=== PATIENT | male | born 1940 | race Caucasian/White ===

== ENCOUNTER 2017-06-20 07:51 | Inpatient (IN) | payer OTHER, MEDICARE ==
[2017-05-26 11:04] VITALS: Ht 180.3 cm; Wt 135.0 kg
--- NOTE | 2017-05-26 11:43 | PAT Medication Instructions ---
Service Date May 26, 2017. Current Home Medication List Aspirin (Aspirin Ec), 81 MG PO QAM B-Complex Vitamins (Vitamin B Complex), 1 TAB PO QAM Coenzyme Q10 (Ubidecarenone) (Coq-10), 400 MG PO QAM Fish Oil ([place]-3), 2 CAP PO QAM Levothyroxine Sodium (Levothyroxine Sodium), 1 TAB PO QAM Metformin Hcl (Glucophage), 500 MG PO BID Multivitamins/Minerals (Mvi With Minerals), 1 TAB PO QAM Naproxen (Aleve), 40 MG PO QAM PRN for RN Ramipril (Ramipril), 1 CAP PO QAM Tamsulosin Hcl (Flomax), 0.8 MG PO QPM Vitamin E (Alph-E), 400 UNITS PO QAM Medication Instructions For Your Scheduled Surgery - Check with surgeon for instructions: Naproxen (Aleve), 40 MG PO QAM PRN for RN - Hold the following medications 2 weeks prior to surgery: Vitamin E (Alph-E), 400 UNITS PO QAM Coenzyme Q10 (Ubidecarenone) (Coq-10), 400 MG PO QAM Fish Oil ([place]-3), 2 CAP PO QAM - Hold the following medications the morning of surgery: B-Complex Vitamins (Vitamin B Complex), 1 TAB PO QAM Metformin Hcl (Glucophage), 500 MG PO BID Multivitamins/Minerals (Mvi With Minerals), 1 TAB PO QAM Ramipril (Ramipril), 1 CAP PO QAM - Take the following medications the morning of surgery with a sip of water: Levothyroxine Sodium (Levothyroxine Sodium), 1 TAB PO QAM Aspirin (Aspirin Ec), 81 MG PO QAM - Take the following medications as scheduled the night before surgery: Tamsulosin Hcl (Flomax), 0.8 MG PO QPM Metformin Hcl (Glucophage), 500 MG PO BID If you have any questions please call us at [phone] or [phone] or [phone]
--- NOTE | 2017-05-26 12:32 | DIAGNOSTIC IMAGING REPORT ---
CHEST 2 VIEWS ROUTINE HISTORY: Preop. COMPARISON: None. FINDINGS: The lungs are clear. Cardiac silhouette is normal in size. No pleural effusions. No pneumothorax. IMPRESSION: No acute process. Electronically signed by: Al Hung M.D. 05/26/2017 12:31 PM Dictated Date/Time: 05/26/2017 12:29 PM
[2017-05-26 12:39] LABS: EOS % 1.5 %; EOS ABS # 0.07 K/uL (0-0.5); HEMATOCRIT 43.8 % (42-52); HEMOGLOBIN 14.7 g/dL (14.0-18.0); IG# 0.01 K/uL (0.00-0.02); LYMPH % 23.5 %; LYMPH ABS # 1.09 K/uL (1.2-3.4); MEAN CELL VOLUME 88.1 fL (80-100); MEAN CORPUSCULAR HEMOGLOBIN 29.6 pg (25-34); MEAN CORPUSCULAR HGB CONC 33.6 g/dl (32-36); MONO % 6.3 %; MONO ABS # 0.29 K/uL (0.11-0.59); NEUT % 68.5 %; NEUT ABS # 3.17 K/uL (1.4-6.5); PLATELET COUNT 102 K/uL (130-400); RED CELL DISTRIBUTION WIDTH CV 13.7 % (11.5-14.5); RED CELL DISTRIBUTION WIDTH SD 44.3 fL (36.4-46.3); WHITE BLOOD COUNT 4.63 K/uL (4.8-10.8)
[2017-05-26 12:51] LABS: PTT PATIENT 28.9 SECONDS (21.0-31.0)
[2017-05-26 13:11] LABS: CREATININE 0.92 mg/dl (0.60-1.40); HEMOGLOBIN A1C 5.7 % (4.5-5.6); POTASSIUM 4.2 mmol/L (3.5-5.1)
[2017-06-20] VITALS (9 sets, daily range): BP systolic 135–179; BP diastolic 77–90; PULSE 58–71; TEMP 36.3–36.7; O2SAT 94–99
[~2017-06-20] VITALS: Ht 180.3 cm; Wt 135.0 kg
--- NOTE | 2017-06-20 07:08 | History & Physical Bridge Note ---
H&P Re-Evaluation Bridge Note: I have examined the patient, reviewed the History & Physical and in the interval since the performance of the History & Physical I have noted the following changes of clinical significance: No changes noted
--- NOTE | 2017-06-20 07:13 | History and Physical ---
History & Physical Date Jun 20, 2017. Chief Complaint Patient presents a 77-year-old white male being seen by with claims of severe end-stage DJD about his right knee for right total knee arthroplasties failed attempts at conservative management and physical therapy anti-inflammatories relative rest activity modification injections or bracing presents for total knee arthroplasty History of Present Illness The patient is a 77 year old male with complaints of ongoing pain about his right knee with severe end-stage DJD bodies right knee he failed times conservative management physical therapy anti-inflammatories relative rest activity modification corticosteroid injections presents for right total knee arthroplasty Additional History Hepatic Disease: No Endocrine Disorder: Yes Kidney Disease: No Hypertension: Yes Heart Disease: No Bleeding Tendencies: No Infectious Diseases: No Allergies Coded Allergies: Morphine (Verified Allergy, Unknown, ITCHY NAUSEA AND VOMITING, 05/26/17) Statins (Verified Allergy, Unknown, SEVERE JOINT ACHES, 05/26/17) Home Medications Scheduled Aspirin (Aspirin Ec), 81 MG PO QAM B-Complex Vitamins (Vitamin B Complex), 1 TAB PO QAM Coenzyme Q10 (Ubidecarenone) (Coq-10), 400 MG PO QAM Fish Oil ([place]-3), 2 CAP PO QAM Levothyroxine Sodium (Levothyroxine Sodium), 1 TAB PO QAM Metformin Hcl (Glucophage), 500 MG PO BID Multivitamins/Minerals (Mvi With Minerals), 1 TAB PO QAM Ramipril (Ramipril), 1 CAP PO QAM Tamsulosin Hcl (Flomax), 0.8 MG PO QPM Vitamin E (Alph-E), 400 UNITS PO QAM Scheduled PRN Naproxen (Aleve), 40 MG PO QAM PRN for RN Physical Examination Skin: warm/dry Eyes: normal inspection, EOMI, sclerae normal ENT: normal ENT inspection, pharynx normal Head: normocephalic, atraumatic Neck: supple, no adenopathy, trachea midline Respiratory/Chest: lungs clear, normal breath sounds, no respiratory distress Cardiovascular: regular rate, rhythm, no edema, no murmur Abdomen / GI: normal bowel sounds, non tender Back: normal inspection Extremities: + pertinent finding (Severe end-stage DJD right knee) Diagnosis Patient presents with a varus alignment subchondral cystic changes marginal osteophytes sclerosis varus ankle about the right knee for right total knee arthroplasty for failed attempts at conservative management Plan of Treatment Plans for total knee arthroplasty postoperative pain management DVT prophylaxis antibiotics and a DVT prophylaxis as necessary
[~2017-06-20 07:51] MED LIST: ACETAMINOPHEN 500 MG TAB PO SCH; ASPI81TA28 PO; B-COTAB18 PO; BUPIVACAINE 0.5 % 5 MG/1 ML PF 10ML VIAL ONE; CEFAZOLIN 3000MG IV PUSH 22.5 ML IV SCH; COEN1CAP32 PO; CeleBREX 200 MG CAP PO SCH; DEXAMETHASONE 4 MG TAB PO SCH; FAMOTIDINE 20 MG TAB PO SCH; GABAPENTIN 300 MG CAP PO SCH; GLC/500 PO; LACTATED RINGER'S 1000ML 1,000 ML IV SCH; LACTATED RINGER'S 1000ML 500 ML IV SCH; LEVO100T7 PO; METOCLOPRAMIDE HCL 10 MG TAB PO SCH; MIDAZOLAM HCL 1 MG/ML 2ML VIAL ONE; MULT-513 PO; NAPR1TAB9 PO; OMEG10007 PO; RAMI5CAP PO; ROPIVACAINE 0.5% 5 MG/ML 30 ML VIAL ONE; ROPIVACAINE 5MG/ML 30 ML 150 MG, BUPIVACAINE 0.5% MPF INJ 30 ML, EpINEphrine HCL INJ 0.... INFIL SCH; TAMS0.4C38 PO; VITA400C28 PO
[2017-06-20] MEDS ORDERED: FENTANYL CITRATE INJ 50 MCG/1 ML 2 ML VIAL ONE (08:54)
[2017-06-20] MEDS ORDERED: BACITRACIN 50000 UNIT VIAL ONE (09:09)
[2017-06-20] MEDS ORDERED: POVIDONE-IODINE OP SOLN 30 ML BTL ONE (09:09)
[2017-06-20] MEDS ORDERED: ORTHO JOINT ANESTHETIC ONE (09:09)
[2017-06-20] MEDS: TRANEXAMIC ACID INJ 1,000 MG x 2 Bags IV SCH ×4 (09:20→14:32)
[2017-06-20] MEDS ORDERED: EpHEDrine SULFATE INJ 50 MG/ML AMP IV PRN (09:45)
[2017-06-20] MEDS ORDERED: ATROPINE SULFATE 0.1 MG/ML 5ML SYR IV PRN (09:45)
[2017-06-20] MEDS ORDERED: PROPOFOL IV EMULSION 10 MG/ML 20 ML VIAL IV ONE (09:49)
[2017-06-20] MEDS ORDERED: GLYCOPYRROLATE INJ 0.2 MG/ML VIAL ONE (10:28)
--- NOTE | 2017-06-20 10:41 | [facility] Post Operative Brief Note ---
Immediate Operative Summary Operative Date Jun 20, 2017. Pre-Operative Diagnosis Severe end-stage degenerative joint disease, right knee Post-Operative Diagnosis Same as preop Procedure(s) Performed Right Total Knee Arthroplasty utilizing [employer] journey to patient matched total knee arthroplasty size 7 femur 6 tibia 12 probably [address] Corbett Chief Controller Tower Surgeon(s) Lala Hussein PA-C Estimated Blood Loss 5 cc Findings Consistent with Post-Op Diagnosis Specimens A: right knee bone and tissue Anesthesia Type MAC Spinal Regional Complication(s) none Disposition Disposition: Recovery Room / PACU
--- NOTE | 2017-06-20 10:42 | [facility] Operative Report ---
Operative Report Operative Date Jun 20, 2017. Pre-Operative Diagnosis Severe end-stage degenerative joint disease, right knee Post-Operative Diagnosis Same as preop Procedure(s) Performed Right Total Knee Arthroplasty utilizing [employer] journey to patient matched total knee arthroplasty size 7 femur 6 tibia 12 probably [address] Corbett Senior [employer] Dba Surgeon(s) Lala Hussein PA-C Estimated Blood Loss 5 cc Findings Patient presents with severe end-stage truck for mild degenerative joint disease of the right knee subchondral sclerosis marginal osteophytes loose bodies sclerosis varus alignment patient failed attempts at conservative management presents for total knee arthroplasty Specimens A: right knee bone and tissue Anesthesia Type MAC Spinal Regional Complication(s) none Disposition Recovery Room / PACU Indications Patient presents after failed attempts at conservative management severe end- stage right hormonal degenerative joint disease subchondral sclerosis marginal osteophytes subchondral cystic changes varus alignment DJD [id number] Description of Procedure After proper prepping and draping of the Right lower extremity anterior midline incision was made over the region of the extensor extensor mechanism after meticulous hemostasis was obtained and maintained in subcutaneous tissues a medial parapatellar incision was made The patella was subluxed lateralward the medial lateral gutter were cleaned from any hypertrophic synovitis and scar tissue of the distal femoral block was placed and the distal femoral osteotomy cut was made subsequently the chamfers anterior and posterior osteotomy cuts were made utilizing the 4-in-1 block the tibia was subsequently subluxed anteriorward medial and ateral meniscal remnants were excised in their entirety remnants of the anterior and posterior cruciate ligaments were excised in their entirety excellent exposure of the proximal tibia was obtained the tibial osteotomy guide was placed on the proximal tibial osteotomy cut was made once again the knee was irrigated with copious amounts of sterile saline solution the patella was subsequently everted lateralward thickened scar tissue around the patella was removed the patella was subsequently cut utilizing a freehand technique and was drilled prepared for final preparation and placement of patella socially flexion-extension gaps were checked and the equal and symmetric trials were placed to the appropriate femoral and tibial trials with poly-spacer being placed for equal flexion and extension gaps and full range of motion including extension to 0 and flexion to 140 the trial components after having been taken to recovery range of motion was subsequently removed meticulous hemostasis was obtained and maintained subsequently a knee block injection of joint cocktail including ropivacaine 0.5% 150 mg. Bupivacaine 0.5 % epinephrine 1-200,030 mL's toradol 30 mg dexamethasone 4 mg ketamine 10 mg clonidine 100 micrograms normal saline solution 30 mg was infiltrated into the soft tissues of the posterior knee medial lateral gutters and periosteal synovium special attention was paid to protect neurovascular structures at all times subsequently trial components having been removed the knee was irrigated with sterile saline solution. debris was removed the proximal tibia was subsequently prepared and was made ready for the placement of the tibial component tibial component was also cemented and tamped into position the femoral component was subsequently placed and cemented in the position the patellar component was subsequently cemented in position because hemostasis once again obtained and maintained wound having been thoroughly irrigated with debridement and debridement lavage was performed as well as a medial parapatellar incision closed with #1 Vicryl in interrupted fashion subcutaneous was closed with #2 Vicryl skin was closed with skin clips. PA-C was necessary for prepping and drapping as well as wound closure of deep fascia Sub cutaneous tissue and skin and was necessary for the case. A sterile compressive dressing was placed patient was taken to recovery in stable condition of report dictated by Aric I attest to the content of the Intraoperative Record and any orders documented therein. Any exceptions are noted below. I attest to the content of the Intraoperative Record and any orders documented therein. Any exceptions are noted below.
[2017-06-20] MEDS ORDERED: ZOLPIDEM TARTRATE 5 MG TAB PO PRN (11:30)
[2017-06-20] MEDS ORDERED: MAGNESIUM HYDROXIDE SUSP 30 ML UDC PO PRN (11:30)
[2017-06-20] MEDS ORDERED: SOD PHOSPHATE/SOD BIPHOSPHATE ENEMA 132 ML BTL PR PRN (11:30)
[2017-06-20] MEDS ORDERED: ONDANSETRON INJ 2 MG/ML 2 ML VIAL IV PRN (11:30)
[2017-06-20] MEDS ORDERED: ALUMINUM/MAGNESIUM/SIMETH (MAALOX MAX) 30 ML UDC PO PRN (11:30)
[2017-06-20] MEDS ORDERED: HYDROmorphone INJ 1 MG/ML SYR IV PRN (11:30)
[2017-06-20] MEDS ORDERED: BISACODYL 10 MG SUPP PR PRN (11:30)
[2017-06-20] MEDS ORDERED: TRAMADOL HCL 50 MG TAB PO PRN (11:30)
--- NOTE | 2017-06-20 12:27 | DIAGNOSTIC IMAGING REPORT ---
R KNEE 1 OR 2 VIEWS ROUTINE HISTORY: 77 years-old Male AP/LATERAL IN PACU RIGHT KNEE status post right knee total joint arthroplasty. Right knee osteoarthritis. COMPARISON: None available TECHNIQUE: 2 views of the right knee FINDINGS: Postoperative changes from right knee total joint arthroplasty and patellar resurfacing. Expected postsurgical soft tissue swelling and deep tissue air about the right knee with surgical drain in place. Alignment is satisfactory without evidence of complication or retained foreign body. Peripheral vascular disease. IMPRESSION: Right knee total joint arthroplasty and patellar resurfacing without complication identified. The above report was generated using voice recognition software. It may contain grammatical, syntax or spelling errors. Electronically signed by: Hakan Donnelly M.D. 06/20/2017 12:26 PM Dictated Date/Time: 06/20/2017 12:24 PM
--- NOTE | 2017-06-20 12:39 | Anesthesiology Progress Note ---
Anesthesia Post Op Note Date & Time Jun 20, 2017 at 12:38 Vital Signs Pain Intensity: 0 Vital Signs Past 12 Hours Date Time Temp Pulse Resp B/P (MAP) Pulse Ox O2 Delivery O2 Flow Rate FiO2 06/20/17 12:30 36.2 06/20/17 12:27 59 16 95 06/20/17 12:27 60 16 06/20/17 12:26 121/70 06/20/17 12:22 60 17 06/20/17 12:22 59 17 96 06/20/17 12:21 126/75 06/20/17 12:17 59 16 06/20/17 12:17 60 16 98 06/20/17 12:16 128/73 06/20/17 12:12 59 13 96 06/20/17 12:12 58 13 06/20/17 12:11 121/70 06/20/17 12:07 61 24 96 06/20/17 12:07 61 24 06/20/17 12:06 121/71 06/20/17 12:02 63 18 06/20/17 12:02 63 18 118/73 94 06/20/17 11:57 61 17 96 06/20/17 11:57 61 17 06/20/17 11:56 127/73 06/20/17 11:52 62 20 06/20/17 11:52 66 20 97 06/20/17 11:51 127/70 06/20/17 11:50 59 16 06/20/17 11:50 60 16 98 06/20/17 11:46 118/64 06/20/17 11:45 64 14 06/20/17 11:45 64 14 96 06/20/17 11:44 61 13 97 06/20/17 11:44 62 13 06/20/17 11:42 123/66 2018 11:39 61 17 98 18 11:39 61 17 18 11:37 122/63 2018 11:34 65 18 98 06/20/17 11:34 66 18 18 11:33 63 18 98 2018 11:33 64 18 18 11:31 116/66 20/18 11:28 67 17 2018 11:28 68 17 98 3/20/18 11:26 109/58 06/20/17 11:24 101/55 06/20/17 11:23 36.2 72 12 101/55 97 Nasal Cannula 3 06/20/17 11:23 71 20 06/20/17 11:23 71 20 97 06/20/17 08:41 36.6 64 16 174/81 98 Room Air Notes Mental Status: alert / awake / arousable, participated in evaluation Pt Amnestic to Procedure: Yes Nausea / Vomiting: adequately controlled Pain: adequately controlled Airway Patency, RR, SpO2: stable & adequate BP & HR: stable & adequate Hydration State: stable & adequate Neuraxial Anesthesia: was administered, sensory block is resolving Anesthetic Complications: no major complications apparent
--- NOTE | 2017-06-20 14:19 | Medical Consult ---
Consultation Date of Consultation: Jun 20, 2017. Attending Physician: Tyrell Corbett D.O. Reason for Consultation: Management of chronic medical problems History of Present Illness We have been asked to see this patient for management of chronic medical problems. Mr. Post is a pleasant 77yo C male with history of mild , DM, HTN, HLP and hypothyroidism s/p total right knee arthroplasty performed today. Patient reports that the surgery went well. He is presently feeling well, pain controlled, no complaints Past Medical/Surgical History 1. Right knee DJD 2. Diabetes 3. HTN 4. BPH 5. Thrombocytopenia 6. Mild Aortic stenosis 7. Thrombocytopenia - patient had extensive workup with Dr. Ramirez in 2015, platelets > 100 at baseline 8. Obstructive sleep apnea 9. Hypothyroidism 10. Obesity Past Surgical History Right and left knee arthroscopic surgery Right rotator cuff repair Left carpal tunnel syndrome Tendon repair right foot Colonoscopy Family History COPD DM HTN Prostate CA Social History Smoking Status: Former Smoker Smokeless Tobacco Use: No Alcohol Use: none Drug Use: none Marital Status: Housing Status: lives with family Occupation Status: retired Allergies Coded Allergies: Morphine (Verified Allergy, Unknown, ITCHY NAUSEA AND VOMITING, 06/20/17) Statins (Verified Allergy, Unknown, SEVERE JOINT ACHES, 06/20/17) Home Medications ASA 81mg po daily Synthroid 100mcg po daily Metformin 500mg po BID Ramipril 5mg po daily Flomax 0.8mg po daily B Complex vitamin daily CoQ 10 daily Fish oil 2tablets po qAM MVI VItamin E 400 IU daily Aleve PRN CPAP qHS 14 Current Inpatient Medications Current Inpatient Medications Medications (Trade) Dose Ordered Sig/Chandrakant Route Start Time Stop Time Status Last Admin Dose Admin Cefazolin Sodium 22.5 ml @ 4.5 mls/min PREOP IV 06/20/17 06:00 06/20/17 18:00 06/20/17 09:38 4.5 MLS/MIN Acetaminophen (Tylenol Tab) 1,000 mg PREOP PO 06/20/17 06:00 06/20/17 18:00 06/20/17 09:01 1,000 MG Celecoxib (CeleBREX CAP) 200 mg PREOP PO 06/20/17 06:00 06/20/17 18:00 06/20/17 09:02 200 MG Dexamethasone (Decadron Tab) 8 mg PREOP PO 06/20/17 06:00 06/20/17 18:00 06/20/17 09:06 8 MG Famotidine (Pepcid Tab) 20 mg PREOP PO 06/20/17 06:00 06/20/17 18:00 06/20/17 09:06 20 MG Gabapentin (Neurontin Cap) 300 mg PREOP PO 06/20/17 06:00 06/20/17 18:00 06/20/17 09:01 300 MG Metoclopramide HCl (Reglan Tab) 10 mg PREOP PO 06/20/17 06:00 06/20/17 18:00 06/20/17 09:02 10 MG Lactated Ringer's 1,000 ml @ 15 mls/hr Q24H IV 06/20/17 06:00 06/21/17 05:59 Ephedrine Sulfate (EpHEDrine SULFATE INJ) 5 mg Q5M PRN IV 06/20/17 09:45 06/20/17 14:45 Atropine Sulfate (Atropine Sulfate 0.1mg/ml Inj) 0.5 mg Q1M PRN IV 06/20/17 09:45 06/20/17 14:45 Sodium Chloride 1,000 ml @ 100 mls/hr Q10H IV 06/20/17 13:15 06/21/17 13:14 Cefazolin Sodium 2000 mg/Syringe 15 ml @ 3.75 mls/ min Q8H IV 06/20/17 18:00 06/21/17 02:03 Celecoxib (CeleBREX CAP) 200 mg BID PO 06/20/17 21:00 07/20/17 20:59 Oxycodone HCl (Roxicodone Immediate Rel Tab) 1 TABLET FOR PAIN RATING... Q4H PRN PO 06/20/17 11:30 07/04/17 11:29 Acetaminophen (Tylenol Tab) 1,000 mg Q8H PO 06/20/17 14:00 07/20/17 13:59 Magnesium Hydroxide (Milk Of Magnesia Susp) 30 ml Q6H PRN PO 06/20/17 11:30 07/20/17 11:29 Bisacodyl (Dulcolax Supp) 10 mg DAILY PRN TN 06/20/17 11:30 07/20/17 11:29 Sodium Biphosphate/ Sodium Phosphate (Fleet Enema) 132 ml DAILY PRN TN 06/20/17 11:30 07/20/17 11:29 Senna (Senokot Tab) 17.2 mg HS PO 06/20/17 21:00 07/20/17 20:59 Docusate Sodium (coLACE CAP) 100 mg BID PO 06/20/17 21:00 07/20/17 20:59 Diphenhydramine HCl (Benadryl Cap) 25 mg Q8H PRN PO 06/20/17 11:30 07/20/17 11:29 Al Hydrox/Mg Hydrox/Simethicone (Maalox Max Susp) 15 ml Q4H PRN PO 06/20/17 11:30 07/20/17 11:29 Zolpidem Tartrate (Ambien Tab) 5 mg HSZ PRN PO 06/20/17 11:30 07/20/17 11:29 Multivitamins (Multivitamin Tab) 1 tab QAM PO 06/21/17 09:00 07/21/17 08:59 Ondansetron HCl (Zofran Inj) 4 mg Q6H PRN IV 06/20/17 11:30 07/20/17 11:29 Pantoprazole Sodium (Protonix Tab) 40 mg QAM PO 06/21/17 09:00 06/24/17 09:01 Tramadol HCl (Ultram Tab) 1 tablet for pain rating... Q4H PRN PO 06/20/17 11:30 07/20/17 11:29 Aspirin (Ecotrin Tab) 81 mg BID PO 06/20/17 21:00 07/20/17 20:59 Levothyroxine Sodium (Synthroid Tab) 100 mcg DAILYBB PO 06/21/17 06:00 07/21/17 05:59 Tamsulosin HCl (Flomax Cap) 0.8 mg QPM PO 06/20/17 21:00 07/20/17 20:59 Vitamin B Complex (Vitamin B Complex) 1 tab DAILY PO 06/21/17 09:00 07/21/17 08:59 Hydromorphone HCl (Dilaudid Inj) 1 mg Q4HWA PRN IV 06/20/17 11:30 07/04/17 11:29 Review of Systems Patient denies headache, fevers, chills, chest pain, palpitations, shortness of breath, cough, wheeze, abdominal pain, nausea, vomiting. All other systems negative Constitutional: No fever, No chills Respiratory: No cough, No shortness of breath Cardiovascular: No chest pain, No palpitations Abdomen: No pain, No nausea, No vomiting Physical Exam Date Time Temp Pulse Resp B/P (MAP) Pulse Ox O2 Delivery O2 Flow Rate FiO2 06/20/17 12:50 16 144/83 (103) 98 06/20/17 12:45 Nasal Cannula 2.0 06/20/17 12:45 Nasal Cannula 2.0 06/20/17 12:40 36.4 58 18 136/80 (98) 98 Nasal Cannula 2.0 06/20/17 12:30 36.2 06/20/17 12:27 59 16 95 06/20/17 12:27 60 16 06/20/17 12:26 121/70 06/20/17 12:22 60 17 06/20/17 12:22 59 17 96 06/20/17 12:21 126/75 06/20/17 12:17 59 16 06/20/17 12:17 60 16 98 06/20/17 12:16 128/73 06/20/17 12:12 59 13 96 06/20/17 12:12 58 13 06/20/17 12:11 121/70 06/20/17 12:07 61 24 96 06/20/17 12:07 61 24 06/20/17 12:06 121/71 06/20/17 12:02 63 18 06/20/17 12:02 63 18 118/73 94 06/20/17 11:57 61 17 96 06/20/17 11:57 61 17 06/20/17 11:56 127/73 06/20/17 11:52 62 20 06/20/17 11:52 66 20 97 06/20/17 11:51 127/70 06/20/17 11:50 59 16 06/20/17 11:50 60 16 98 06/20/17 11:46 118/64 06/20/17 11:45 64 14 06/20/17 11:45 64 14 96 06/20/17 11:44 61 13 97 06/20/17 11:44 62 13 06/20/17 11:42 123/66 06/20/17 11:39 61 17 98 3/20/18 11:39 61 17 06/20/17 11:37 122/63 06/20/17 11:34 65 18 98 06/20/17 11:34 66 18 06/20/17 11:33 63 18 98 06/20/17 11:33 64 18 06/20/17 11:31 116/66 06/20/17 11:28 67 17 06/20/17 11:28 68 17 98 06/20/17 11:26 109/58 06/20/17 11:24 101/55 06/20/17 11:23 36.2 72 12 101/55 97 Nasal Cannula 3 06/20/17 11:23 71 20 06/20/17 11:23 71 20 97 06/20/17 08:41 36.6 64 16 174/81 98 Room Air 2/6 [email or web address] at 2nd right ACS with radiation across precordium General Appearance: WD/WN, no apparent distress Head: normocephalic, atraumatic Eyes: normal inspection, PERRL, EOMI, sclerae normal ENT: hearing grossly normal, pharynx normal Neck: supple, no adenopathy, thyroid normal, no JVD Respiratory/Chest: lungs clear, normal breath sounds, no respiratory distress, no accessory muscle use Cardiovascular: regular rate, rhythm, no edema, no gallop, normal peripheral pulses Abdomen/GI: normal bowel sounds, non tender, soft Neurologic/Psych: alert, normal mood/affect Skin: normal color Laboratory Results Last 24 Hours Test 06/20/17 08:59 06/20/17 11:49 06/20/17 13:41 Bedside Glucose 94 mg/dl 103 mg/dl 136 mg/dl Assessment & Plan 77yo C male s/p total right knee arthroplasty performed today. Patient presently doing well with no complaints. 1. Total right knee arthroplasty - stable. Continue pain control, bowel regimen and post-operative management per primary team 2. Diabetes - Stable. Blood sugar presently 103, last AIC reported at 5.7. Patient on Metformin 500mg po BID as outpatient -Diabetic diet as tolerated -ISS 3. HTN - Stable. Patient's blood pressure slightly elevated today at 144/83. -May resume home Ramipril 5mg po daily 4. Hypothyroidism - Stable. -May continue home Synthroid dose 100mcg po daily 5. BPH - Stable -May continue home Flomax dose 0.8mg po daily 6. Thrombocytopenia - stable, chronic. Patient has had extensive workup in the past. Patient with platelets presently 102. -Continue to monitor 7. CHRIS - stable -Continue nocturnal CPAP at home setting 8. May continue home supplements as you are doing - Fish oil Thank you for this consult
[2017-06-20] MEDS: ACETAMINOPHEN 500 MG TAB PO SCH ×2 (14:32→21:13)
[2017-06-20] MEDS: SODIUM CHLORIDE 0.9% 1000ML 1,000 ML IV SCH (14:34)
[2017-06-20] MEDS ORDERED: GLUCAGON FOR INJ 1 MG VIAL SQ PRN (15:30)
[2017-06-20] MEDS ORDERED: DEXTROSE 50% 50 ML SYR IV PRN (15:30)
[2017-06-20] MEDS ORDERED: GLUCOSE 10 TABS/TUBE PO PRN (15:30)
[2017-06-20] MEDS ORDERED: GLUCOSE 40% GEL 15 GM TUBE PO PRN (15:30)
[2017-06-20] MEDS: CEFAZOLIN IV 2,000 MG in SYRINGE 0 ML IV SCH (18:20)
[2017-06-20] MEDS: INSULIN ASPART 100 UNITS/ML 3 ML PEN SC SCH ×2 (18:27→21:12)
[2017-06-20] MEDS: DOCUSATE SODIUM 100 MG CAP PO SCH (21:08)
[2017-06-20] MEDS: TAMSULOSIN HCL 0.4 MG CAP PO SCH (21:08)
[2017-06-20] MEDS: ASPIRIN 81 MG ECTAB PO SCH (21:08)
[2017-06-20] MEDS: SENNA 8.6 MG TAB PO SCH (21:08)
[2017-06-20] MEDS: CeleBREX 200 MG CAP PO SCH (21:09)
[2017-06-20] MEDS ORDERED: NURSING VERBAL MED ORDER ONE (22:00)
[2017-06-21] MEDS: SODIUM CHLORIDE 0.9% 1000ML 1,000 ML IV SCH ×2 (00:19→10:30)
[2017-06-21] MEDS: CEFAZOLIN IV 2,000 MG in SYRINGE 0 ML IV SCH (02:24)
[2017-06-21 02:45] VITALS: BP 128/74; PULSE 55; TEMP 36.4; O2SAT 97
[2017-06-21] MEDS ORDERED: ROPIVACAINE 5MG/ML 30 ML 150 MG, BUPIVACAINE 0.5% MPF INJ 30 ML, EpINEphrine HCL INJ 0.... INFIL SCH ×8 (06:00)
[2017-06-21] MEDS: ACETAMINOPHEN 500 MG TAB PO SCH ×3 (06:12→22:07)
[2017-06-21] MEDS: LEVOTHYROXINE 100 MCG TAB PO SCH (06:12)
[2017-06-21 07:28] VITALS: BP 141/83; PULSE 63; TEMP 36.6; O2SAT 94
[2017-06-21 07:56] LABS: HEMATOCRIT 33.8 % (42-52); HEMOGLOBIN 11.2 g/dL (14.0-18.0); MEAN CELL VOLUME 86.7 fL (80-100); MEAN CORPUSCULAR HEMOGLOBIN 28.7 pg (25-34); MEAN CORPUSCULAR HGB CONC 33.1 g/dl (32-36); PLATELET COUNT 114 K/uL (130-400); RED CELL DISTRIBUTION WIDTH CV 13.4 % (11.5-14.5); RED CELL DISTRIBUTION WIDTH SD 42.2 fL (36.4-46.3); WHITE BLOOD COUNT 8.57 K/uL (4.8-10.8)
[2017-06-21 08:02] LABS: INR 1.1 (0.9-1.1)
--- NOTE | 2017-06-21 08:17 | Orthopedic Progress Note ---
Orthopedic Progress Note Date of Service Jun 21, 2017. Subjective Post OP Day: 1 Reports: feeling well, Denies: chest pain, SOB, nausea / vomiting, light headedness, calf pain Objective calves soft nontender, N/V intact, hip located, capillary refill less than 2 sec., dressing C/D/I, A&O x3, toes mobile, hemovac drainage (330/300cc per shift ) Date Time Temp Pulse Resp B/P (MAP) Pulse Ox O2 Delivery O2 Flow Rate FiO2 06/21/17 07:28 36.6 63 15 141/83 (102) 94 Room Air 06/21/17 02:45 36.4 55 15 128/74 (92) 97 CPAP 06/20/17 23:35 Room Air CPAP 06/20/17 22:53 36.7 61 18 135/77 (96) 94 Room Air 06/20/17 21:03 59 145/79 (101) 06/20/17 19:50 36.4 67 16 179/90 (119) 95 Room Air 06/20/17 15:39 36.3 60 18 143/83 (103) 95 Room Air 06/20/17 14:36 36.3 60 18 159/90 (113) 99 Nasal Cannula 2.0 06/20/17 13:40 71 18 146/88 (107) 98 06/20/17 12:50 16 144/83 (103) 98 06/20/17 12:45 Nasal Cannula 2.0 06/20/17 12:45 Nasal Cannula 2.0 06/20/17 12:40 36.4 58 18 136/80 (98) 98 Nasal Cannula 2.0 06/20/17 12:30 36.2 06/20/17 12:27 59 16 95 06/20/17 12:27 60 16 06/20/17 12:26 121/70 06/20/17 12:22 60 17 06/20/17 12:22 59 17 96 06/20/17 12:21 126/75 06/20/17 12:17 59 16 06/20/17 12:17 60 16 98 06/20/17 12:16 128/73 06/20/17 12:12 59 13 96 06/20/17 12:12 58 13 06/20/17 12:11 121/70 3/20/18 12:07 61 24 96 06/20/17 12:07 61 24 06/20/17 12:06 121/71 06/20/17 12:02 63 18 06/20/17 12:02 63 18 118/73 94 06/20/17 11:57 61 17 96 06/20/17 11:57 61 17 06/20/17 11:56 127/73 06/20/17 11:52 62 20 06/20/17 11:52 66 20 97 06/20/17 11:51 127/70 06/20/17 11:50 59 16 06/20/17 11:50 60 16 98 06/20/17 11:46 118/64 06/20/17 11:45 64 14 06/20/17 11:45 64 14 96 06/20/17 11:44 61 13 97 06/20/17 11:44 62 13 06/20/17 11:42 123/66 06/20/17 11:39 61 17 98 06/20/17 11:39 61 17 06/20/17 11:37 122/63 06/20/17 11:34 65 18 98 06/20/17 11:34 66 18 06/20/17 11:33 63 18 98 06/20/17 11:33 64 18 06/20/17 11:31 116/66 06/20/17 11:28 67 17 06/20/17 11:28 68 17 98 06/20/17 11:26 109/58 06/20/17 11:24 101/55 06/20/17 11:23 36.2 72 12 101/55 97 Nasal Cannula 3 06/20/17 11:23 71 20 06/20/17 11:23 71 20 97 06/20/17 08:41 36.6 64 16 174/81 98 Room Air Laboratory Results 24 Hours: Test 06/21/17 07:29 Hematocrit 33.8 % Hemoglobin 11.2 g/dL Prothromb Time International Ratio 1.1 Prothrombin Time 11.1 SECONDS Assessment & Plan Assessment: POD#1 SP RIGHT TKA Plan: PT/OT DVT PROPH- ASA 81MG BID PAIN MANAGEMENT- WESLY, TYLENOL, CELEBREX DC PLANNING- PATIENT REQUESTS REFERRAL TO [facility]. TRANSFER IN AM IF ACCEPTED DC DRESSING/DRAIN IN AM.
[2017-06-21 08:31] LABS: CALCIUM 8.1 mg/dl (8.5-10.1); CREATININE 0.93 mg/dl (0.60-1.40); POTASSIUM 3.8 mmol/L (3.5-5.1)
[2017-06-21] MEDS: PANTOprazole SOD 40 MG TAB PO SCH (08:49)
[2017-06-21] MEDS: VITAMIN B COMPLEX TAB PO SCH (08:49)
[2017-06-21] MEDS: ASPIRIN 81 MG ECTAB PO SCH ×2 (08:49→20:53)
[2017-06-21] MEDS: ENALAPRIL MALEATE 10 MG TAB PO SCH ×2 (08:49→08:57)
[2017-06-21] MEDS: DOCUSATE SODIUM 100 MG CAP PO SCH ×2 (08:49→20:52)
[2017-06-21] MEDS: MULTIVITAMIN TAB PO SCH (08:49)
[2017-06-21] MEDS: OMEGA-3 (PURIFIED FISH OIL) 1 GM CAP PO SCH (08:50)
[2017-06-21] MEDS: CeleBREX 200 MG CAP PO SCH ×2 (08:50→20:52)
[2017-06-21] MEDS: INSULIN ASPART 100 UNITS/ML 3 ML PEN SC SCH ×4 (08:54→20:51)
--- NOTE | 2017-06-21 10:55 | Anesthesiology Progress Note ---
Anesthesia Post Op Note Date & Time Jun 21, 2017 at 10:54 Vital Signs Pain Intensity: 0.0 Vital Signs Past 12 Hours Date Time Temp Pulse Resp B/P (MAP) Pulse Ox O2 Delivery O2 Flow Rate FiO2 06/21/17 07:40 Room Air 06/21/17 07:28 36.6 63 15 141/83 (102) 94 Room Air 06/21/17 02:45 36.4 55 15 128/74 (92) 97 CPAP 06/20/17 23:35 Room Air CPAP Notes Mental Status: alert / awake / arousable, participated in evaluation Pt Amnestic to Procedure: Yes Nausea / Vomiting: adequately controlled Pain: adequately controlled Airway Patency, RR, SpO2: stable & adequate BP & HR: stable & adequate Hydration State: stable & adequate Neuraxial Anesthesia: was administered, sensory block resolved Anesthetic Complications: no major complications apparent
[2017-06-21 11:13] VITALS: BP 136/77; PULSE 61; O2SAT 96
[2017-06-21 15:12] VITALS: BP 145/81; PULSE 53; TEMP 36.4; O2SAT 98
--- NOTE | 2017-06-21 17:08 | Progress Note ---
Subjective Date of Service: Jun 21, 2017. Subjective Pt evaluation today including: conversation w/ patient, physical exam, chart review, lab review, review of inpatient medication list doing well pleased with progress pain controlled did well w PT no other complaints no sob Review of Systems all other ROS otherwise negative except for as above Objective Vital Signs Date Time Temp Pulse Resp B/P (MAP) Pulse Ox O2 Delivery O2 Flow Rate FiO2 06/21/17 16:00 Room Air 06/21/17 15:12 36.4 53 18 145/81 (102) 98 Room Air 06/21/17 11:13 61 18 136/77 (96) 96 Room Air 06/21/17 07:40 Room Air 06/21/17 07:28 36.6 63 15 141/83 (102) 94 Room Air 06/21/17 02:45 36.4 55 15 128/74 (92) 97 CPAP 06/20/17 23:35 Room Air CPAP 06/20/17 22:53 36.7 61 18 135/77 (96) 94 Room Air 06/20/17 21:03 59 145/79 (101) 06/20/17 19:50 36.4 67 16 179/90 (119) 95 Room Air Physical Exam General Appearance: no apparent distress Eyes: EOMI ENT: hearing grossly normal Neck: trachea midline Respiratory/Chest: no respiratory distress, no accessory muscle use Extremities: normal range of motion 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, alert, normal mood/affect Skin: normal color, warm/dry Laboratory Results Last 24 Hours Test 06/20/17 17:18 06/20/17 20:37 06/21/17 07:29 06/21/17 07:47 Bedside Glucose 153 mg/dl 153 mg/dl 128 mg/dl White Blood Count 8.57 K/uL Red Blood Count 3.90 M/uL Hemoglobin 11.2 g/dL Hematocrit 33.8 % Mean Corpuscular Volume 86.7 fL Mean Corpuscular Hemoglobin 28.7 pg Mean Corpuscular Hemoglobin Concent 33.1 g/dl RDW Standard Deviation 42.2 fL RDW Coefficient of Variation 13.4 % Platelet Count 114 K/uL Mean Platelet Volume 9.0 fL Prothrombin Time 11.1 SECONDS Prothromb Time International Ratio 1.1 Sodium Level 139 mmol/L Potassium Level 3.8 mmol/L Chloride Level 108 mmol/L Carbon Dioxide Level 25 mmol/L Anion Gap 6.0 mmol/L Blood Urea Nitrogen 17 mg/dl Creatinine 0.93 mg/dl Est Creatinine Clear Calc Drug Dose 94.8 ml/min Estimated GFR () 92.1 Estimated GFR (Non- 79.5 BUN/Creatinine Ratio 18.0 Random Glucose 134 mg/dl Calcium Level 8.1 mg/dl Test 06/21/17 11:56 Bedside Glucose 87 mg/dl Assessment and Plan 77yo C male s/p total right knee arthroplasty from yesterday. 1. Total right knee arthroplasty - stable. Continue pain control, bowel regimen and post-operative management per primary team 2. Diabetes - Stable.sugars all acceptable, last AIC reported at 5.7. continue current care -Diabetic diet as tolerated -ISS 3. HTN - BP's reasonable, continue current care and follow 4. Hypothyroidism - Stable. -Synthroid 100mcg po daily 5. BPH - Stable -continue Flomax dose 0.8mg po daily 6. Thrombocytopenia - stable, chronic. Patient has had extensive workup in the past. no bleeding 7. CRHIS - stable -Continue nocturnal CPAP
[2017-06-21] MEDS: TAMSULOSIN HCL 0.4 MG CAP PO SCH (20:53)
[2017-06-21] MEDS: SENNA 8.6 MG TAB PO SCH (20:53)
[2017-06-21 22:50] VITALS: BP 124/71; PULSE 65; TEMP 36.7; O2SAT 99
[2017-06-22] MEDS: OXYCODONE HCL IR 5 MG TAB (IMMEDIATE RELEASE) PO PRN ×2 (00:55→05:48)
[2017-06-22] MEDS: LEVOTHYROXINE 100 MCG TAB PO SCH (05:44)
[2017-06-22] MEDS: ACETAMINOPHEN 500 MG TAB PO SCH (05:44)
[2017-06-22 06:25] VITALS: BP 124/71; PULSE 65; TEMP 36.7; O2SAT 99
--- NOTE | 2017-06-22 07:21 | Orthopedic Progress Note ---
Orthopedic Progress Note Date of Service Jun 22, 2017. Subjective Post OP Day: 2 Reports: feeling well, pain controlled w PO medications, Denies: complaints, chest pain, SOB, nausea / vomiting, light headedness, calf pain Objective calves soft nontender, N/V intact, capillary refill less than 2 sec., incision C /D/I, A&O x3, toes mobile Date Time Temp Pulse Resp B/P (MAP) Pulse Ox O2 Delivery O2 Flow Rate FiO2 06/22/17 06:25 36.7 65 16 124/71 (88) 99 Room Air 06/22/17 00:30 Room Air CPAP 06/21/17 22:50 36.7 65 16 124/71 (88) 99 Room Air 06/21/17 16:00 Room Air 06/21/17 15:12 36.4 53 18 145/81 (102) 98 Room Air 06/21/17 11:13 61 18 136/77 (96) 96 Room Air 06/21/17 07:40 Room Air 06/21/17 07:28 36.6 63 15 141/83 (102) 94 Room Air Laboratory Results 24 Hours: Test 06/21/17 07:29 Hematocrit 33.8 % Hemoglobin 11.2 g/dL Prothromb Time International Ratio 1.1 Prothrombin Time 11.1 SECONDS Assessment & Plan Assessment: POD#2 SP RIGHT TKA Plan: PT/OT DVT PROPH- ASA 81MG BID PAIN MANAGEMENT- WESLY, TYLENOL, CELEBREX DC PLANNING- PATIENT REQUESTS REFERRAL TO [facility]. TRANSFER IN AM IF ACCEPTED Discharge Planning DVT Prophylaxis: TEDs, SCDs, ASA Therapy: Physical Therapy
--- NOTE | 2017-06-22 07:24 | Discharge Instructions ---
Discharge Instructions Date of Service Jun 22, 2017. Admission Reason for Admission: Right Knee Osteoarthritis Discharge Discharge Diagnosis / Problem: right total knee replacement Discharge Goals Goal(s): Decrease discomfort, Improve function, Increase independence Activity Recommendations Activity Level: Up Ad Marni Therapies: Physical Therapy, Weight Bearing Status Weightbearing Status: Right weightbearing (as tolerated) . Additional Information Patient informed of condition: Yes Advance Directives: No DNR: No Level of Care: Acute Rehab Communicable Disease: No Prognosis: Stable Instructions / Follow-Up Instructions / Follow-Up ACTIVITY RECOMMENDATIONS: SELF CARE INSTRUCTIONS AFTER TOTAL KNEE REPLACEMENT A. You may need to continue a physical therapy program after discharge from the hospital. There are several options available to you. Your doctor will assist you in selecting the best one for you. 1. An out-patient facility 2 to 3 times a week for therapy or home therapy. 2. Continue working on all exercises taught to you in the hospital. Your goals should be to increase bending of your knee to 90 degrees and beyond and to fully straighten your knee. B. You may progress at your own pace from walking with a walker or crutches to a cane; then to no assistive devices. C. Make walking a part of your daily routine. Be up as much as comfortable with rest periods throughout the day. Rest with leg elevation is very important. Use the ice wrap frequently for the first 3-4 weeks. D. There are no restrictions on activities. You may ride in a car, shop, participate in cattle broker and all social activities. E. Wear the long elastic stockings (JAYY hose) 20 hours a day for 2 weeks after surgery. They can be removed several times a day for laundering and for a bath. F. You may shower, no tub baths until cleared by your doctor. SPECIAL CARE INSTRUCTIONS: VERY IMPORTANT TO READ AND REVIEW A. There are a few signs you need to watch for after you are home. Call [facility] if you notice any of the followin. Increased severe knee pain. Some pain is expected especially when you exercise. 2. Increased swelling in your leg or knee; pain or swelling of the calf muscle in either lower leg. 3. Any fluid drainage from the incision. 4. Shortness of breath or chest pain. B. Please call [facility] at if you have any concerns or questions about your operation or recovery. The doctor or his nurse will return your call promptly. C. You must take antibiotics before dental work, bladder, bowel or other surgery. Your doctor will provide you with a permanent care to carry describing this precaution. IMPORTANT: * REMEMBER TO TAKE ASPIRIN, 81 MG, TWICE DAILY FOR 4 WEEKS UNLESS OTHERWISE DIRECTED. THIS IS YOUR BLOOD THINNER. * HIGH RISK PATIENTS MAY BE PRESCRIBED A STRONGER BLOOD THINNER. THIS WILL BE PROVIDED AT DISCHARGE. * CALL IF INCREASED PAIN, REDNESS, DRAINAGE OR FEVER GREATER THAT 101. * WEAR JAYY HOSE 20 HOURS PER DAY FOR 2 WEEKS. * DERMABOND Prineo- This is a mesh tape dressing that is covered with glue. It should remain in place until the incision is properly healed, usually 10-14 days. This dressing is designed to naturally slough off. You may trim the excess mesh tape as it peels off. Incision may be briefly wet in a shower. Dry immediately by blotting with a clean, dry towel. Do not bath or swim until instructed by your doctor. Do not scratch, rub, or pick at the dressing. Do not apply any topical ointments or lotions until dressing is completely removed and/or instructed by your doctor. There may be a small piece of suture material at one end of your incision. Do not pull or trim this. If it is bothersome or catching on clothing, you may cover it with a band-aid. FOLLOW UP VISIT: If appointment is not already scheduled: Please call [facility] to make a follow-up appointment for 2 weeks after your surgery at . Current Hospital Diet Patient's current hospital diet: Diabetes Type 2 Diet Discharge Diet Recommended Diet: Diabetes Type 2 Diet Procedures Procedures Performed: Right Total Knee Arthroplasty utilizing [facility] journey to patient matched total knee arthroplasty size 7 femur 6 tibia 12 probably 35 oval patella Pending Studies Studies pending at discharge: no Physician Orders On Transfer Dressing Changes: DERMABOND Prineo- This is a mesh tape dressing that is covered with glue. It should remain in place until the incision is properly healed, usually 10-14 days. This dressing is designed to naturally slough off. You may trim the excess mesh tape as it peels off. Incision may be briefly wet in a shower. Dry immediately by blotting with a clean, dry towel. Do not bath or swim until instructed by your doctor. Do not scratch, rub, or pick at the dressing. Do not apply any topical ointments or lotions until dressing is completely removed and/or instructed by your doctor. There may be a small piece of suture material at one end of your incision. Do not pull or trim this. If it is bothersome or catching on clothing, you may cover it with a band-aid. Laboratory Results Hemoglobin A1c Test 05/26/17 11:52 Range/Units Estimated Average Glucose 117 mg/dl Hemoglobin A1c 5.7 H 4.5-5.6 % Medical Emergencies . Who to Call and When: Medical Emergencies: If at any time you feel your situation is an emergency, please call 911 immediately. . Non-Emergent Contact Non-Emergency issues call your: Primary Care Provider, Surgeon . . "Provider Documentation" section prepared by Souleymane Hussein. . Core Measure Problem Core Measures: None [place] Drug Monitoring Program Search Results: patient reviewed within database, no issues identified
[2017-06-22] MEDS ORDERED: CLC100 PO (07:28)
[2017-06-22] MEDS ORDERED: CLB200 PO (07:28)
[2017-06-22] MEDS ORDERED: RXC5 PO (07:28)
[2017-06-22] MEDS ORDERED: ACET-24 PO (07:28)
[2017-06-22] MEDS ORDERED: ONDA-170 PO (07:28)
[2017-06-22] MEDS ORDERED: ASPEC81 PO (07:28)
[2017-06-22] MEDS: INSULIN ASPART 100 UNITS/ML 3 ML PEN SC SCH (07:40)
[2017-06-22] MEDS: MULTIVITAMIN TAB PO SCH (07:41)
[2017-06-22] MEDS: DOCUSATE SODIUM 100 MG CAP PO SCH (07:41)
[2017-06-22] MEDS: PANTOprazole SOD 40 MG TAB PO SCH (07:41)
[2017-06-22] MEDS: OMEGA-3 (PURIFIED FISH OIL) 1 GM CAP PO SCH (07:41)
[2017-06-22] MEDS: VITAMIN B COMPLEX TAB PO SCH (07:41)
[2017-06-22] MEDS: CeleBREX 200 MG CAP PO SCH (07:42)
[2017-06-22] MEDS: ENALAPRIL MALEATE 10 MG TAB PO SCH (07:42)
[2017-06-22] MEDS: ASPIRIN 81 MG ECTAB PO SCH (08:02)
--- NOTE | 2017-06-22 09:52 | Discharge Summary ---
Orthopedic Discharge Summary Admission Date/Reason Jun 20, 2017 at 08:00 Right Knee Osteoarthritis. Discharge Date/Disposition Jun 22, 2017 Rehab Diagnosis Principal Diagnosis: right knee osteoarthritis Procedure(s) Performed Right Total Knee Arthroplasty utilizing [facility] journey to patient matched total knee arthroplasty size 7 femur 6 tibia 12 probably 35 oval patella Consultations [facility] Hospitalist Medication Reconciliation New Medications: Ondansetron Hcl (Zofran) 8 Mg Tab 8 MG PO Q8 PRN for Nausea, #20 TAB Acetaminophen (Sb Non-Aspirin Extra Stre) 500 Mg Tab 1000 MG PO Q8H, #63 TAB Aspirin (Aspirin EC Low Dose) 81 Mg Ectab 81 MG PO BID for 30 Days, #60 TAB Celecoxib (Celebrex) 200 Mg Cap 200 MG PO BID for 30 Days, #60 CAP Docusate Sodium (Docusate Sodium) 100 Mg Cap 100 MG PO BID for 10 Days, #20 CAP Oxycodone HCl (Oxycodone HCl) 5 Mg Tab 5-10 MG PO Q4H PRN for Pain, #60 TAB Continued Medications: B-Complex Vitamins (Vitamin B Complex) 1 Tab Tab 1 TAB PO QAM Coenzyme Q10 (Ubidecarenone) (Coq-10) 400 Mg Cap 400 MG PO QAM Fish Oil ([place]-3) 1 Ea Cap 2 CAP PO QAM, CAP Levothyroxine Sodium (Levothyroxine Sodium) 100 Mcg Tab 1 TAB PO QAM for 90 Days, #90 TAB 3 Refills Metformin Hcl (Glucophage) 500 Mg Tab 500 MG PO BID, TAB Multivitamins/Minerals (Mvi With Minerals) Tab 1 TAB PO QAM, TAB Ramipril (Ramipril) 5 Mg Cap 1 CAP PO QAM for 90 Days, #90 CAP 3 Refills Tamsulosin Hcl (Flomax) 0.4 Mg Cap 0.8 MG PO QPM, CAP Vitamin E (Alph-E) 400 Unit Cap 400 UNITS PO QAM Discontinued Medications: Aspirin (Aspirin Ec) 81 Mg Tab 81 MG PO QAM Naproxen (Aleve) 220 Mg Tab 40 MG PO QAM PRN for RN, TAB Admission Physical Exam As per Admitting History & Physical. Hospital Course Patient was a same day admission after undergoing a successful right TKA. He tolerated the procedure well. Post-operatively, his activity was progressed and well tolerated. Please refer to daily progress notes and PT notes for complete details. After exam on 06/22/17, patient felt to be stable for transfer to [facility]. Patient will f/u in the office in 2 weeks for further evaluation including x-rays and incision check, sooner if having any issues or concerns. Below are pertinent labs/studies during their hospital stay: Last Vital Signs Documentation Date Time Temp Pulse Resp B/P (MAP) Pulse Ox O2 Delivery O2 Flow Rate FiO2 06/22/17 06:25 36.7 65 16 124/71 (88) 99 Room Air 06/20/17 14:36 2.0 Last Resulted CBC 06/21/17 07:29 Last Resulted BMP 06/21/17 07:29 Discharge Instructions ACTIVITY RECOMMENDATIONS: SELF CARE INSTRUCTIONS AFTER TOTAL KNEE REPLACEMENT A. You may need to continue a physical therapy program after discharge from the hospital. There are several options available to you. Your doctor will assist you in selecting the best one for you. 1. An out-patient facility 2 to 3 times a week for therapy or home therapy. 2. Continue working on all exercises taught to you in the hospital. Your goals should be to increase bending of your knee to 90 degrees and beyond and to fully straighten your knee. B. You may progress at your own pace from walking with a walker or crutches to a cane; then to no assistive devices. C. Make walking a part of your daily routine. Be up as much as comfortable with rest periods throughout the day. Rest with leg elevation is very important. Use the ice wrap frequently for the first 3-4 weeks. D. There are no restrictions on activities. You may ride in a car, shop, participate in post acute care nurse practitioner and all social activities. E. Wear the long elastic stockings (JAYY hose) 20 hours a day for 2 weeks after surgery. They can be removed several times a day for laundering and for a bath. F. You may shower, no tub baths until cleared by your doctor. SPECIAL CARE INSTRUCTIONS: VERY IMPORTANT TO READ AND REVIEW A. There are a few signs you need to watch for after you are home. Call [facility] if you notice any of the followin. Increased severe knee pain. Some pain is expected especially when you exercise. 2. Increased swelling in your leg or knee; pain or swelling of the calf muscle in either lower leg. 3. Any fluid drainage from the incision. 4. Shortness of breath or chest pain. B. Please call [facility] at if you have any concerns or questions about your operation or recovery. The doctor or his nurse will return your call promptly. C. You must take antibiotics before dental work, bladder, bowel or other surgery. Your doctor will provide you with a permanent care to carry describing this precaution. IMPORTANT: * REMEMBER TO TAKE ASPIRIN, 81 MG, TWICE DAILY FOR 4 WEEKS UNLESS OTHERWISE DIRECTED. THIS IS YOUR BLOOD THINNER. * HIGH RISK PATIENTS MAY BE PRESCRIBED A STRONGER BLOOD THINNER. THIS WILL BE PROVIDED AT DISCHARGE. * CALL IF INCREASED PAIN, REDNESS, DRAINAGE OR FEVER GREATER THAT 101. * WEAR JAYY HOSE 20 HOURS PER DAY FOR 2 WEEKS. * DERMABOND Prineo- This is a mesh tape dressing that is covered with glue. It should remain in place until the incision is properly healed, usually 10-14 days. This dressing is designed to naturally slough off. You may trim the excess mesh tape as it peels off. Incision may be briefly wet in a shower. Dry immediately by blotting with a clean, dry towel. Do not bath or swim until instructed by your doctor. Do not scratch, rub, or pick at the dressing. Do not apply any topical ointments or lotions until dressing is completely removed and/or instructed by your doctor. There may be a small piece of suture material at one end of your incision. Do not pull or trim this. If it is bothersome or catching on clothing, you may cover it with a band-aid. FOLLOW UP VISIT: If appointment is not already scheduled: Please call [facility] to make a follow-up appointment for 2 weeks after your surgery at .
[2017-06-22 11:14] VITALS: BP 124/71; PULSE 65; TEMP 36.7; O2SAT 99
== END 2017-06-22 12:29 | DRG 470 ==
LOC: C.ACU 07:51 → C.3E 08:00 → ENRESERV 12:09
PROVIDERS: ADMIT Orthopaedic Surgery; ATTEND Orthopaedic Surgery
PROC: 0SRC0J9 Replacement of Right Knee Joint with Synthetic Substitute, Cemented, Open Approach (ICD-10-PCS; principal; 2017-06-20 09:45)
DX: M17.11 Unilateral primary osteoarthritis, right knee (principal); Z68.41 Body mass index [BMI] 40.0-44.9, adult; M21.161 Varus deformity, not elsewhere classified, right knee; I10 Essential (primary) hypertension; E11.42 Type 2 diabetes mellitus with diabetic polyneuropathy; E03.9 Hypothyroidism, unspecified; N40.0 Benign prostatic hyperplasia without lower urinary tract symptoms; D69.6 Thrombocytopenia, unspecified; G47.33 Obstructive sleep apnea (adult) (pediatric); E66.01 Morbid (severe) obesity due to excess calories; Z99.89 Dependence on other enabling machines and devices; Z87.891 Personal history of nicotine dependence; Z79.82 Long term (current) use of aspirin; Z79.84 Long term (current) use of oral hypoglycemic drugs; Z79.899 Other long term (current) drug therapy; Z88.5 Allergy status to narcotic agent; Z88.8 Allergy status to other drugs, medicaments and biological substances

== ENCOUNTER 2020-08-19 08:17 | Observation (INO) ==
--- NOTE | 2020-07-17 13:12 | PAT Medication Instructions ---
Medication Instructions Date of Service July 17, 2020 Home Medications CoQ-10 1 dose PO QAM Vitamin B-12 1 dose PO QAM aspirin [Aspir-81] 81 mg PO QAM bumetanide [Bumex] 1 mg PO QAM cholecalciferol (vitamin D3) [Vitamin D3] 25 mcg PO QAM levothyroxine 50 mcg PO QAM metformin 500 mg PO BID omega-3 fatty acids [[place] 3 Fish Oil] 1,000 mg PO QAM ramipril 5 mg PO QAM tamsulosin 0.8 mg PO HS STOP taking 2 weeks before surgery (or as soon as possible if surgery is within 2 weeks) CoQ-10 1 dose PO QAM omega-3 fatty acids [[place] 3 Fish Oil] 1,000 mg PO QAM DO NOT take the morning of surgery Vitamin B-12 1 dose PO QAM bumetanide [Bumex] 1 mg PO QAM cholecalciferol (vitamin D3) [Vitamin D3] 25 mcg PO QAM metformin 500 mg PO BID ramipril 5 mg PO QAM Take morning of surgery With a small sip of water, OTHERWISE NOTHING TO EAT OR DRINK AFTER MIDNIGHT: aspirin [Aspir-81] 81 mg PO QAM levothyroxine 50 mcg PO QAM Take evening before surgery metformin 500 mg PO BID tamsulosin 0.8 mg PO HS Other Notes If you have any questions please call us at [phone] or [phone] or [phone] or [phone]
--- NOTE | 2020-07-20 13:20 | Anesthesiology Consultation ---
Date of Service July 20, 2020 Assessment & Plan (1) Encounter for pre-operative examination: - COVID screening: Per assessment on 07/20: Travel screen negative, no known COVID-19 positive contacts or current COVID-19 related symptoms. Patient has had initial COVID vaccine (scheduled for second vaccine 07/29). Patient personally COVID positive early 03/2020 ([facility]). Symptoms at time of loss of taste/smell, sob, cough, congestion, fatigue > resolved except residual dyspnea (improved) and fatigue. Surgeon arranging preop COVID testing. Awaiting results. - Check BSG AM DOS - S/P Right TKA (06/20/17): SAB at L3/L4 (x1 attempt) + PNB at [facility] - Anesthesia concerns: Discussed SAB vs. GA. Patient states daughter related to complications with spinal tap (r/t meningitis differential diagnosis) . Discussed differences between SAB vs. spinal tap. Patient voiced understanding. Still wishes to proceed with general anesthesia if possible. Patient aware that anesthesia will discuss anesthesia options again AM DOS. Chart Review Chart Review: Acceptable Risk for Surgery (pending surgeon-ordered cardiology clearance) and Patient seen in Pre Admission Testing Teaching & Discussion Pre-Anesthesia Teaching/Discussion Notes: Instructed NPO after midnight before surgery,except medications with 15 cc of water. Medication instructions provided according to the PAT guidelines. History Surgery Operation Date: 08/19/20 09:55 Proposed Procedures p Left Total Knee Arthroplasty - Tyrell Corbett DO Height/Weight Height: 5 ft 10 in Weight: 127.5 kg Allergies Allergy/AdvReac Type Severity Reaction Status Date / Time morphine Allergy Unknown Itchy, N/V Verified 07/17/20 15:48 [id number] Reductase AdvReac Unknown Severe Verified 07/17/20 15:48 Inhibitor myalgias Medications Home Medications Medication Instructions Recorded Confirmed Last Taken CoQ-10 1 dose PO QAM 07/16/20 07/16/20 Unknown Vitamin B-12 1 dose PO QAM 07/16/20 07/16/20 Unknown aspirin [Aspir-81] 81 mg PO QAM 07/16/20 07/16/20 Unknown bumetanide [Bumex] 1 mg PO QAM 07/16/20 07/16/20 Unknown cholecalciferol (vitamin D3) 25 mcg PO QAM 07/16/20 07/16/20 Unknown [Vitamin D3] levothyroxine 50 mcg PO QAM 07/16/20 07/16/20 Unknown metformin 500 mg PO BID 07/16/20 07/16/20 Unknown omega-3 fatty acids [[place] 3 Fish 1,000 mg PO QAM 07/16/20 07/16/20 Unknown Oil] ramipril 5 mg PO QAM 07/16/20 07/16/20 Unknown tamsulosin 0.8 mg PO HS 07/16/20 07/16/20 Unknown Past Medical History Medical History Aortic stenosis "Mild" aortic stenosis (MG 15mmhg, WALESKA 1.6cm2) per 05/2020 echo BPH (benign prostatic hyperplasia) CHF (congestive heart failure) Diastolic DM type 2 (diabetes mellitus, type 2) NIDDM History of COVID-19 03/2020 ([facility]). Symptoms at time of loss of taste/smell, sob, cough, congestion, fatigue > resolved except residual dyspnea (improved) and fatigue HLD (hyperlipidemia) HTN (hypertension) Hypothyroidism Morbid obesity Osteoarthritis Sleep apnea CPAP (compliant) Thrombocytopenia Chronic thrombocytopenia s/p unremarkable heme workup in 2014, no identified etiology, baseline platelets low 100's Tinnitus Exercise / Class Metabolic Activity III < 4 Walking/Shop/Light housework (one flight of stairs regularly (no chest pain, + sob)) Past Family History Family History Grandmother Diabetes Past Surgical History Surgical History History of cardiac catheterization 2018 ([facility]) > normal coronaries/diastolic HF History of carpal tunnel release Rt History of colonoscopy History of detached retina repair History of foot surgery Rt History of repair of right rotator cuff History of right knee joint replacement Right TKA (06/20/17): SAB at L3/L4 (x1 attempt) + PNB at [facility] History of tonsillectomy History of tooth extraction Past Anesthesia History No Hx of Anesthesia Complications and No Family Hx of Anesthesia Complications History of PONV No Hx of PONV and No Hx of Motion Sickness Social History Smoking Status: Former smoker Do You Dip or Chew Tobacco: No Smoking End Date: Quit 50 years ago Hx Alcohol Use: No Hx Substance Use: No substance use type: does not use Review of Systems Patient denies chest pain, shortness of breath, dyspnea on exertion, fever, chills, cough, wheezing, palpitations. Physical Exam Vital Signs VITALS BP 133/86 P 55 TEMP 97.8 SP02 98%RA RESP 16 PHYSICAL Full cervical extension range of motion. Full TMJ range of motion. TMD 3 finger breaths Mallampati Score 2 Dentition: upper full denture Lungs: clear throughout to auscultation Cardiac: regular rate and rhythm, I/ systolic murmur, distant heart sounds Spine: normal Carotid arteries: negative bruit Extremities: no edema Trimmed urena Testing Laboratory Results 07/20/20 13:46 07/20/20 13:46 PT 10.7 Seconds (9.0-12.0) 07/20/20 13:46 INR 1.1 (0.9-1.1) 07/20/20 13:46 APTT 30.8 Seconds (21.0-31.0) 07/20/20 13:46 Hemoglobin A1c 5.8 % (4.5-5.6) H 07/20/20 13:46 Urine Color Yellow 07/20/20 13:46 Urine Appearance Clear (Clear) 07/20/20 13:46 Urine pH 7.0 (4.5-7.5) 07/20/20 13:46 Ur Specific [place] 1.014 (1.000-1.030) 07/20/20 13:46 Urine Protein Negative (Negative) 07/20/20 13:46 Urine Glucose (UA) Negative (Negative) 07/20/20 13:46 Urine Ketones Negative (Negative) 07/20/20 13:46 Urine Nitrite Negative (Negative) 07/20/20 13:46 Ur Leukocyte Esterase Negative (Negative) 07/20/20 13:46 Blood Type A Positive 07/20/20 13:46 Antibody Screen NEGATIVE 07/20/20 13:46 Low WBC. Preop labs to be forwarded to PCP for continuity of care* Electrocardiogram Date: 06/09/20 Sinus rhythm at 64 bpm. LAFB. PRWP. Chest X-Ray Date: 07/20/20 FINDINGS: PA and lateral chest radiographs are compared to study dated 05/26/2017. The heart is enlarged noting atherosclerotic calcification of the thoracic aorta. The pulmonary vasculature is noncongested. Chronic interstitial thickening is similar to previous. There is mild bibasilar scarring/atelectasis. No airspace consolidation or pleural effusion is identified. There is no pneumothorax. The skeletal structures are osteopenic. The bony thorax appears intact. IMPRESSION: Cardiomegaly with no active disease in the chest. Echocardiogram Date: 05/12/20 EF 55-60%. Grade 2 DD. Mild cLVH. Consistent with elevated ventricular end- diastolic filling pressures. Mild LAD. Degenerated trileaflet aortic valve. Mild aortic stenosis (MG 15mmhg, WALESKA 1.6cm2). Stress Test Date: 12/03/19 Type: nuclear (Lexiscan) Lexiscan stress EKG not indicative of ischemia. Inferior wall attenuation artifact presentdiaphragmatic attenuation. EF 53%. Fixed basal and mid inferior defect. No ischemia. Cardiac Catheterization Date: 09/19/18 Coronary angiography normal. Normal EF with probable LVH. Systemic HTN. Elevated right and left sided filling pressures consistent with acute diastolic heart failure.
[2020-07-20 14:15] LABS: Eosinophils # (auto) 0.06 K/uL (0-0.5); Eosinophils % (auto) 1.6 %; Hematocrit (blood only) 42.6 % (42-52); Hemoglobin 13.9 g/dL (14.0-18.0); Immature Granulocytes # (auto) 0.01 K/uL (0.00-0.02); Immature Granulocytes % (auto) 0.3 %; Lymphocytes # (auto) 0.73 K/uL (1.2-3.4); Lymphocytes % (auto) 19.9 %; Mean Corpuscular Hemoglobin 29.6 pg (25-34); Mean Corpuscular Hgb Conc 32.6 g/dL (32-36); Mean Corpuscular Volume 90.6 fL (80-100); Mean Platelet Volume 9.6 fL (7.4-10.4); Monocytes # (auto) 0.29 K/uL (0.11-0.59); Monocytes % (auto) 7.9 %; Neutrophils # (auto) 2.58 K/uL (1.4-6.5); Neutrophils % (auto) 70.3 %; Platelet Count 129 K/uL (130-400); RDW Coefficient of Variation 13.9 % (11.5-14.5); RDW Standard Deviation 45.8 fL (36.4-46.3); White Blood Count 3.67 K/uL (4.8-10.8)
[2020-07-20 14:16] LABS: Appearance Urine Clear (Clear); Bilirubin Urine Negative (Negative); Blood Urine Negative (Negative); Color Urine Yellow; Glucose Urine UA Negative (Negative); Ketones Urine Negative (Negative); Leukocyte Esterase Urine Negative (Negative); Nitrite Urine Negative (Negative); Protein Urine Negative (Negative); Specific Gravity Urine 1.014 (1.000-1.030); Urobilinogen Urine Negative (Negative)
[2020-07-20 14:27] LABS: INR 1.1 (0.9-1.1); Partial Thromboplastin Ratio 1.2; Partial Thromboplastin Time 30.8 Seconds (21.0-31.0); Prothrombin Time 10.7 Seconds (9.0-12.0)
--- NOTE | 2020-07-20 14:44 | XRay Report ---
TWO VIEW CHEST CLINICAL HISTORY: History of hypertension and congestive heart failure. Preoperative examination. FINDINGS: PA and lateral chest radiographs are compared to study dated 05/26/2017. The heart is enlarg ed noting atherosclerotic calcification of the thoracic aorta. The pulmonary vasculature is nonconges jerman. Chronic interstitial thickening is similar to previous. There is mild bibasilar scarring/atelect asis. No airspace consolidation or pleural effusion is identified. There is no pneumothorax. The skel etal structures are osteopenic. The bony thorax appears intact. IMPRESSION: Cardiomegaly with no active disease in the chest. ACT 112: Negative or not required by law. Electronically signed by: Tevin Hernandez M.D. 07/20/2020 2:42 PM
[2020-07-20 15:10] LABS: Albumin Level 3.9 gm/dl (3.4-5.0); BUN Creatinine Ratio 25.6 (10-20); Calcium 9.3 mg/dl (8.5-10.1); Creatinine Clr Calc Pharmacy 100.4 ml/min; Est GFR (African American) 98.5; Potassium 4.2 mmol/L (3.5-5.1)
[2020-07-20 16:24] LABS: Estimated Average Glucose 120 mg/dl; Hemoglobin A1C 5.8 % (4.5-5.6)
--- NOTE | 2020-07-23 13:15 | History & Physical Report ---
Date of Service July 23, 2020 date of surgery: 08/19/20 Procedure: Left Total Knee Arthroplasty Assessment & Plan (1) Arthritis of knee, left: Risks and benefits of procedure discussed in detail today, patient would like to proceed with a Left total knee replacement at [facility] as scheduled. will obtain medical clearance prior to surgery as well as obtain PATs at [facility]. Will place on ASA 81mg po bid x 1 month post op, f/u 2 weeks post op for routine post-operative care and x-ray, sooner if having any problems. will make arrangements for HHPT at the time of discharge. At this point in time, has failed conservative measures and would like to proceed with surgical intervention. The risks and benefits have been discussed including, but not limited to, risk of infection, nerve injury, stiffness, loss of motion, failure to improve, etc. Reasonable outcomes and options of treatment were discussed. An explanation of appropriate alternatives to the procedure that may be advantageous were discussed and their risks and benefits, as well as the risks and benefits of not proceeding with treatment. I offered to answer any additional inquiries concerning the treatment involved. All the patient's questions were answered. The patient is agreeable, understanding of the treatment plan and alternatives, and wishes to proceed with the treatment plan. History of Present Illness Chief Complaint: left knee pain Primary Care Provider: NO PCP Gerardo is a 80 year old male who complains of left knee pain, presents for pre- op evaluation prior to a left total knee replacement by Dr Corbett at [facility]. He complains of pain, decreased range of motion, instability and stiffness in his left knee. He states that the symptoms have been chronic and non-traumatic. Currently the patient states that the symptoms are moderate-severe and rates his pain as 6/10. His pain is described as aching, sharp and throbbing. His symptoms are aggravated by ascending stairs, daily activities, first steps while awake walking. Prior NSAIDs include Aleve. He has been treated with previous visco injections in the past without much relief. he uses a brace on his knee as well as sometimes uses a cane. Allergies Allergy/AdvReac Type Severity Reaction Status Date / Time morphine Allergy Unknown Itchy, N/V Verified 07/17/20 15:48 Hjdholu-Lng-Rnt Reductase AdvReac Unknown Severe Verified 07/17/20 15:48 Inhibitor myalgias Home Medications Medication Instructions Recorded Confirmed Type CoQ-10 1 dose PO QAM 07/16/20 07/16/20 History Vitamin B-12 1 dose PO QAM 07/16/20 07/16/20 History aspirin [Aspir-81] 81 mg PO QAM 07/16/20 07/16/20 History bumetanide [Bumex] 1 mg PO QAM 07/16/20 07/16/20 History cholecalciferol (vitamin D3) 25 mcg PO QAM 07/16/20 07/16/20 History [Vitamin D3] levothyroxine 50 mcg PO QAM 07/16/20 07/16/20 History metformin 500 mg PO BID 07/16/20 07/16/20 History omega-3 fatty acids [Conesus 3 Fish 1,000 mg PO QAM 07/16/20 07/16/20 History Oil] ramipril 5 mg PO QAM 07/16/20 07/16/20 History tamsulosin 0.8 mg PO HS 07/16/20 07/16/20 History Past Med/Surg History Medical History Aortic stenosis "Mild" aortic stenosis (MG 15mmhg, WALESKA 1.6cm2) per 05/2020 echo BPH (benign prostatic hyperplasia) CHF (congestive heart failure) Diastolic DM type 2 (diabetes mellitus, type 2) NIDDM History of COVID-19 03/2020 ([facility]). Symptoms at time of loss of taste/smell, sob, cough, congestion, fatigue > resolved except residual dyspnea (improved) and fatigue HLD (hyperlipidemia) HTN (hypertension) Hypothyroidism Morbid obesity Osteoarthritis Sleep apnea CPAP (compliant) Thrombocytopenia Chronic thrombocytopenia s/p unremarkable heme workup in 2014, no identified etiology, baseline platelets low 100's Tinnitus Surgical History (Updated 07/23/20 @ 13:21 by Souleymane Hussein PA-C) History of cardiac catheterization 2018 ([facility]) > normal coronaries/diastolic HF History of carpal tunnel release Rt History of colonoscopy History of detached retina repair History of foot surgery Rt History of repair of right rotator cuff History of right knee joint replacement Right TKA (06/20/17): SAB at L3/L4 (x1 attempt) + PNB at [facility] Right Total Knee Arthroplasty utilizing [employer] journey to patient matched total knee arthroplasty size 7 femur 6 tibia 12 probably 35 oval patella History of tonsillectomy History of tooth extraction Family History Grandmother Diabetes Social History Smoking Status: Former smoker Smoking End Date: Quit 50 years ago; Second Hand Exposure: No; Do You Dip or Chew Tobacco: No; Tobacco Cessation Education Requested by Patient: No Hx Alcohol Use: No Hx Substance Use: No Preferred Language: Luxembourger Communication Ability: Effective Board Certified Arts Therapist Required: No Beliefs That Will Affect Care: None Current Living Situation: Spouse Feels Safe at Home: Yes Safety Concerns: Feels Safe At This Time Assistive Devices: Cane, Denture - Upper and Glasses Assistive Devices Comment: cane prn Review of Systems Review of Systems: All systems reviewed & are unremarkable except as noted in HPI & below Constitutional: no fever, no chills and no sweats Respiratory: no cough and no dyspnea Cardiovascular: no chest pain, no dyspnea and no orthopnea Gastrointestinal: no abdominal pain, no nausea and no vomiting Musculoskeletal: as per Subjective / HPI Physical Exam Physical Exam: HT: 5ft 10in WT: 127.5kg BP: 122/78 Pulse: 63 Constitutional: WD/WN, vitals as above no acute distress Respiratory: normal respiratory effort, lungs clear to auscultation no respiratory distress, no labored breathing and does not use accessory muscles Cardiovascular: RRR, no murmur, no edema Gastrointestinal (Abdomen): normal bowel sounds, soft, nontender, no hepatospl enomegaly Musculoskeletal: Knee: + knee abnormal to inspection (Left Knee- ), + effusion (+1 effusion), + limited ROM of knee (ROM 0/3/110), + knee ROM with crepitation, + joint line tenderness (medial joint line) and + Huan's sign positive; no d eformity, no skin erythema, no ecchymosis, no valgus laxity, no varus laxity, anterior drawer test negative, Mynor's sign negative and pivot shift test negative Results & Data Results & Data ([facility]) Laboratory Results Laboratory Results WBC 3.67 K/uL (4.8-10.8) L 07/20/20 13:46 RBC 4.70 M/uL (4.7-6.1) 07/20/20 13:46 Hgb 13.9 g/dL (14.0-18.0) L 07/20/20 13:46 Hct 42.6 % (42-52) 07/20/20 13:46 MCV 90.6 fL (80-100) 07/20/20 13:46 MCH 29.6 pg (25-34) 07/20/20 13:46 MCHC 32.6 g/dL (32-36) 07/20/20 13:46 RDW Std Deviation 45.8 fL (36.4-46.3) 07/20/20 13:46 RDW Coeff of Estuardo 13.9 % (11.5-14.5) 07/20/20 13:46 Plt Count 129 K/uL (130-400) L 07/20/20 13:46 MPV 9.6 fL (7.4-10.4) 07/20/20 13:46 Immature Gran % (Auto) 0.3 % 07/20/20 13:46 Neut % (Auto) 70.3 % 07/20/20 13:46 Lymph % (Auto) 19.9 % 07/20/20 13:46 [place] % (Auto) 7.9 % 07/20/20 13:46 Eos % (Auto) 1.6 % 07/20/20 13:46 Baso % (Auto) 0.0 % 07/20/20 13:46 Neut # (Auto) 2.58 K/uL (1.4-6.5) 07/20/20 13:46 Lymph # (Auto) 0.73 K/uL (1.2-3.4) L 07/20/20 13:46 Independence # (Auto) 0.29 K/uL (0.11-0.59) 07/20/20 13:46 Eos # (Auto) 0.06 K/uL (0-0.5) 07/20/20 13:46 Baso # (Auto) 0.00 K/uL (0-0.2) 07/20/20 13:46 Immature Gran # (Auto) 0.01 K/uL (0.00-0.02) 07/20/20 13:46 PT 10.7 Seconds (9.0-12.0) 07/20/20 13:46 INR 1.1 (0.9-1.1) 07/20/20 13:46 APTT 30.8 Seconds (21.0-31.0) 07/20/20 13:46 PTT Ratio 1.2 07/20/20 13:46 Sodium 141 mmol/L (136-145) 07/20/20 13:46 Potassium 4.2 mmol/L (3.5-5.1) 07/20/20 13:46 Chloride 109 mmol/L (98-107) H 07/20/20 13:46 Carbon Dioxide 27 mmol/L (21-32) 07/20/20 13:46 Anion Gap 5.0 (3-11) 07/20/20 13:46 BUN 20 mg/dl (7-18) H 07/20/20 13:46 Creatinine 0.80 mg/dl (0.6-1.4) 07/20/20 13:46 Est Cr Clr Drug Dosing 100.4 ml/min 07/20/20 13:46 Est GFR ( Amer) 98.5 07/20/20 13:46 Est GFR (Non-Af Amer) 85.0 07/20/20 13:46 BUN/Creatinine Ratio 25.6 (10-20) H 07/20/20 13:46 Glucose 88 mg/dl (70-99) 07/20/20 13:46 Estimat Average Glucose 120 mg/dl 07/20/20 13:46 Hemoglobin A1c 5.8 % (4.5-5.6) H 07/20/20 13:46 Calcium 9.3 mg/dl (8.5-10.1) 07/20/20 13:46 Albumin 3.9 gm/dl (3.4-5.0) 07/20/20 13:46 Urine Color Yellow 07/20/20 13:46 Urine Appearance Clear (Clear) 07/20/20 13:46 Urine pH 7.0 (4.5-7.5) 07/20/20 13:46 Ur Specific [place]away 1.014 (1.000-1.030) 07/20/20 13:46 Urine Protein Negative (Negative) 07/20/20 13:46 Urine Glucose (UA) Negative (Negative) 07/20/20 13:46 Urine Ketones Negative (Negative) 07/20/20 13:46 Urine Blood Negative (Negative) 07/20/20 13:46 Urine Nitrite Negative (Negative) 07/20/20 13:46 Urine Bilirubin Negative (Negative) 07/20/20 13:46 Urine Urobilinogen Negative (Negative) 07/20/20 13:46 Ur Leukocyte Esterase Negative (Negative) 07/20/20 13:46 Blood Type A Positive 07/20/20 13:46 Antibody Screen NEGATIVE 07/20/20 13:46 Impressions Chest X-Ray 07/20/20 08:05 TWO VIEW CHEST CLINICAL HISTORY: History of hypertension and congestive heart failure. Preoperative examination. FINDINGS: PA and lateral chest radiographs are compared to study dated 05/26/2017. The heart is enlarged noting atherosclerotic calcification of the thoracic aorta. The pulmonary vasculature is noncongested. Chronic interstitial thickening is similar to previous. There is mild bibasilar scarring/atelectasis. No airspace consolidation or pleural effusion is identified. There is no pneumothorax. The skeletal structures are osteopenic. The bony thorax appears intact. IMPRESSION: Cardiomegaly with no active disease in the chest. ACT 112: Negative or not required by law. Electronically signed by: Tevin Hernandez M.D. 07/20/2020 2:42 PM Diagnostic Findings Left Knee X-ray from 07/13/20 confirms advanced degenerative changes to the left knee, greatest medial compartments and patellofemoral joint, showing joint space narrowing, osteophyte formation and subchondral sclerosis. no acute bony pathology noted.
[~2020-08-19 08:17] MED LIST changes: -ASPI81TA28 PO; -B-COTAB18 PO; -CEFAZOLIN 3000MG IV PUSH 22.5 ML IV SCH; -COEN1CAP32 PO; -DEXAMETHASONE 4 MG TAB PO SCH; -GLC/500 PO; -LACTATED RINGER'S 1000ML 1,000 ML IV SCH; -LACTATED RINGER'S 1000ML 500 ML IV SCH; -LEVO100T7 PO; +LR 500ML BOLUS, THEN 15ML/HR IV SCH; -METOCLOPRAMIDE HCL 10 MG TAB PO SCH; +METOCLOPRAMIDE HCL 10 MG TABLET PO SCH; -MIDAZOLAM HCL 1 MG/ML 2ML VIAL ONE; -MULT-513 PO; -NAPR1TAB9 PO; -OMEG10007 PO; -RAMI5CAP PO; -ROPIVACAINE 0.5% 5 MG/ML 30 ML VIAL ONE; +ROPIVACAINE 0.5% HCL/PF 150 MG, BUPIVACAINE 0.75% MPF 20 ML, EPINEPHrine 30MG/30ML (OR ... INSTIL SCH; -ROPIVACAINE 5MG/ML 30 ML 150 MG, BUPIVACAINE 0.5% MPF INJ 30 ML, EpINEphrine HCL INJ 0.... INFIL SCH; -TAMS0.4C38 PO; +TRANEXAMIC ACID 1,000 MG **IV Intra-op IV SCH; +TRANEXAMIC ACID 1,000 MG **IV Pre-op IV SCH; -VITA400C28 PO; +dexAMETHasone 4 MG TAB PO SCH
[2020-08-19] MEDS ORDERED: MIDAZOLAM HCL 1 MG/ML 2ML VIAL ONE ×2 (08:46→08:47)
[2020-08-19] MEDS ORDERED: fentaNYL citrate 100 MCG/2 ML VIAL ONE ×2 (08:47→11:18)
[2020-08-19] MEDS ORDERED: ePHEDrine sulfate 50 MG/ML AMP IV PRN (09:26)
[2020-08-19] MEDS ORDERED: ONDANSETRON INJ 2 MG/ML 2 ML VIAL IV PRN ×2 (09:26→14:28)
[2020-08-19] MEDS ORDERED: ATROPINE SULFATE 0.1 MG/ML 10ML SYR IV PRN (09:26)
--- NOTE | 2020-08-19 09:52 | History & Physical Bridge Note ---
Date of Service August 19, 2020 History & Physical Bridge Note I have examined the patient, reviewed the History & Physical and in the interval since the performance of the History & Physical I have noted the following changes of clinical significance: no changes noted
[2020-08-19] MEDS ORDERED: ROPIVACAINE 0.5% 5 MG/ML 30 ML VIAL ONE (10:28)
[2020-08-19] MEDS ORDERED: ORTHO JOINT ANESTHETIC ONE (10:33)
[2020-08-19] MEDS ORDERED: PROPOFOL IV EMULSION 10 MG/ML 20 ML VIAL IV ONE (11:27)
[2020-08-19] MEDS ORDERED: KETOROLAC 30 MG/ML VIAL ONE (11:28)
--- NOTE | 2020-08-19 12:05 | Operative Report ---
Post Operative Report Pre & Post Diagnosis Operation Date: 08/19/20 10:50 Pre-Op Diagnosis: Left knee degenerative joint disease Post-Op Diagnosis: left knee degenerative joint disease I identified the patient and participated in the time-out.: Yes Procedure Operation Date: 08/19/20 10:50 Actual Procedures p Left Total Knee Arthroplasty utilizing [employer] [facility] two patient matched total knee arthroplasty size femur six tibia six polytwelve constrained patella 35 trudy- Tyrell Corbett DO Surgeon Tyrell Corbett DO [employer] Pcb Designer Sy CARTER Estimated Blood Loss 5 Findings Consistent with Post-Op Diagnosis Patient presents with severe end-stage DJD left knee with varus alignment subchondral sclerosis marginal osteophytes [id number] eburnated bone moderate to large effusion Specimens Bone and cartilage Drains Medium bore Hemovac Anesthesia Type MAC Spinal Regional Complications none Disposition Accompanied Patient To Recovery: No Disposition: Recovery Room Indications Patient is a severe end-stage DJD left knee for left total knee arthroplasty patient fell attempted conservative management physical therapy anti- inflammatories relative rest activity modification corticosteroid injections viscosupplementation Description of Procedure After proper prepping and draping of the left lower extremity anterior midline incision was made over the region of the extensor extensor mechanism after meticulous hemostasis was obtained and maintained in subcutaneous tissues a medial parapatellar incision was made The patella was subluxed lateralward the medial lateral gutter were cleaned from any hypertrophic synovitis and scar tissue of the distal femoral block was placed and the distal femoral osteotomy cut was made subsequently the chamfers anterior and posterior osteotomy cuts were made utilizing the 4-in-1 block the tibia was subsequently subluxed anteriorward medial and ateral meniscal remnants were excised in their entirety remnants of the anterior and posterior cruciate ligaments were excised in their entirety excellent exposure of the proximal tibia was obtained the tibial osteotomy guide was placed on the proximal tibial osteotomy cut was made once again the knee was irrigated with copious amounts of sterile saline solution the patella was subsequently everted lateralward thickened scar tissue around the patella was removed the patella was subsequently cut utilizing a freehand technique and was drilled prepared for final preparation and placement of patella socially flexion-extension gaps were checked and the equal and symmetric trials were placed to the appropriate femoral and tibial trials with poly-spacer being placed for equal flexion and extension gaps and full range of motion including extension to 0 and flexion to 140 the trial components after having been taken to recovery range of motion was subsequently removed meticulous hemostasis was obtained and maintained subsequently a knee block injection of joint cocktail including ropivacaine 0.5% 150 mg. Bupivacaine 0.5% epinephrine 1-200,030 mL's toradol 30 mg dexamethasone 4 mg ketamine 10 mg clonidine 100 micrograms normal saline solution 30 mg was infiltrated into the soft tissues of the posterior knee medial lateral gutters and periosteal synovium special attention was paid to protect neurovascular structures at all times subsequently trial components having been removed the knee was irrigated with sterile saline solution. debris was removed the proximal tibia was subsequently prepared and was made ready for the placement of the tibial component tibial component was also cemented and tamped into position the femoral component was subsequently placed and cemented in the position the patellar component was subsequently cemented in position because hemostasis once again obtained and maintained wound having been thoroughly irrigated with debridement and debridement lavage was performed as well as a medial parapatellar incision closed with #1 Vicryl in interrupted fashion subcutaneous was closed with #2 Vicryl skin was closed with skin clips. PA-C was necessary for prepping and drapping as well as wound closure of deep fascia Sub cutaneous tissue and skin and was necessary for the case. A sterile compressive dressing was placed patient was taken to recovery in stable condition of report dictated by Aric I attest to the content of the Intraoperative Record and any orders documented therein. Any exceptions are noted below. I attest to the content of the Intraoperative Record and any orders documented therein. Any exceptions are noted below.
--- NOTE | 2020-08-19 13:28 | XRay Report ---
XR knee LT 1 or 2V routine HISTORY: 80 years-old Male Surgical Post Op left knee total joint arthroplasty COMPARISON: None TECHNIQUE: 2 views of the left knee FINDINGS: Left knee total joint arthroplasty and patella resurfacing. Anterior midline skin jurgen with surgic al drainage catheter, expected postoperative soft tissue swelling with deep tissue air. No acute frac ture, alignment or unexpected opaque foreign body. An electronic battery pack projects over the later al distal thigh. IMPRESSION: Left knee total joint arthroplasty and patella resurfacing with expected postoperative ch anges. ACT 112: Negative or not required by law. The above report was generated using voice recognition software. It may contain grammatical, syntax o r spelling errors. Electronically signed by: Lico Donnelly M.D. 08/19/2020 1:27 PM
[2020-08-19] MEDS: fentaNYL citrate 100 MCG/2 ML VIAL IV PRN ×3 (13:29→13:39)
--- NOTE | 2020-08-19 13:53 | Anesthesiology Progress Note ---
Date of Service August 19, 2020 Anesthesia Post Procedure Vital Signs Vital Signs: Temp Pulse Pulse Resp BP BP Pulse Ox 08/19/20 13:50 68 14 127/75 96 08/19/20 13:40 66 14 132/73 96 08/19/20 13:30 67 14 139/71 97 08/19/20 13:20 67 12 140/73 96 08/19/20 13:10 68 12 107/67 98 08/19/20 13:00 68 12 132/72 97 08/19/20 12:53 98.1 F 71 12 135/64 97 08/19/20 08:45 98.1 F 71 20 143/84 H 98 Pain Intensity Left Knee: Pain Intensity: 5 Transfer of Care Handoff Completed per policy Notes Mental Status: alert / awake / arousable and participated in evaluation Patient Amnestic to Procedure: Yes Nausea / Vomiting: adequately controlled Pain: adequately controlled Airway Patency, RR, SpO2: stable & adequate BP & HR: stable & adequate Hydration State: stable & adequate Anesthetic Complications: no major complications apparent and Pt Satisfied with anesthetic care
[2020-08-19] MEDS ORDERED: MAGNESIUM HYDROXIDE SUSP 30 ML UDC PO PRN (14:28)
[2020-08-19] MEDS ORDERED: HYDROmorphone INJ 0.5 MG/0.5 ML SYR IV PRN (14:28)
[2020-08-19] MEDS ORDERED: bisacodyL 10 MG SUPP PR PRN (14:28)
[2020-08-19] MEDS ORDERED: NALOXONE HCL 0.4 MG/1 ML VIAL/CARP IV PRN (14:28)
[2020-08-19] MEDS ORDERED: PHARMACY GLYCEMIC MGMT CONSULT PRN (14:43)
[2020-08-19] MEDS ORDERED: NovoLIN-N (NPH) PER UNIT CHARGE SQ STA (14:48)
[2020-08-19] MEDS ORDERED: GLUCOSE 10 TABS/TUBE PO PRN (15:00)
[2020-08-19] MEDS ORDERED: DEXTROSE 50% 50 ML SYRINGE IV PRN (15:00)
[2020-08-19] MEDS ORDERED: CARBOHYDRATES FOR HYPOGLYCEMIA PO PRN (15:00)
[2020-08-19] MEDS ORDERED: GLUCAGON FOR INJ 1 MG VIAL IM PRN (15:00)
[2020-08-19] MEDS ORDERED: GLUCOSE 40% GEL 15 GM TUBE PO PRN (15:00)
--- NOTE | 2020-08-19 15:02 | Pharmacy Report ---
Pharmacy Glycemic Short Note 2 - Date of Service August 19, 2020 - Glycemic Short BSG Results (Last 24 hours): 08/19/20 08/19/20 08:31 12:59 POC Glucose 107 H 154 H OUTPATIENT ANTIDIABETIC REGIMEN: * Metformin 500 mg PO BIDM * HbA1c = 5.8% (07/20/20) ASSESSMENT: * 80 yo M admitted s/p left total knee arthroplasty today. Pharmacy has been consulted to assist with inpatient glycemic management. Patient did receive 8 mg of PO dexamethasone preoperatively as well as the ortho joint mix. No further steroids are ordered at this time. * Preoperative BSG was 107 mg/dL. Postoperative BSG was 154 mg/dL. * Will give 35 units (0.37 units/kg of adjusted body weight) of NPH x 1 to cover for steroid-induced hyperglycemia. Novolog will be started based on a weight and stress of 2. * Once steroids wear off, can likely be transitioned back to home metformin as long as diet is tolerated. PLAN FOR INPATIENT GLYCEMIC CONTROL: * Hold outpatient oral diabetes medications * Basal insulin * NPH 35 units SC x 1 * Bolus insulin * NovoLog per scale ACHS or Q6hrs while NPO * Goal Range: Low 110 mg/dL - High 140 mg/dL * Correction Factor: 20 mg/dL/unit * Nutritional / Prandial insulin per carb ratio of 1 unit per 7 grams CHO consumed PLAN FOR DISCHARGE: * HbA1c was 5.8% from 07/20/20 which is below the goal range of 7-8% for this patient. * Consider discontinuation of Metformin at discharge. If no hypoglycemia is experienced at home, then reasonable to continue Metformin upon discharge.
[2020-08-19] MEDS: ACETAMINOPHEN 500 MG TAB PO SCH ×2 (15:26→21:44)
[2020-08-19] MEDS: SODIUM CHLORIDE 0.9% 1000ML 1,000 ML IV SCH (15:26)
--- NOTE | 2020-08-19 15:40 | Hospitalist Consultation ---
Date of Consultation August 19, 2020 Assessment & Plan (1) S/P TKR (total knee replacement): Status post left total knee arthroplasty 08/19/[address] Bryon Corbett. Pain control dressing management and eventual discharge to be determined by the orthopedic team (2) CHF (congestive heart failure): Is a history of diastolic heart failure heart failure preserved ejection fracture. He was seen by [facility] cardiology with a left heart cath on August 10, 2020. At that time his left coronary anatomy was intact he did have evidence of some increased right-sided pressures and elevated patient of his diuretic dose was recommended. He does have mild to moderate aortic stenosis but this not directly commented upon. Typically the patient takes Bumex 1 mg twice daily this will be continued. (3) DM type 2 (diabetes mellitus, type 2): Typically the patient is only on Metformin 500 twice daily he is on insulin sliding scale with glycemic management through pharmacy (4) Hypothyroidism: Patient remains on Synthroid 50 mcg a day. Last TSH was March 2020 it was slightly elevated at 4.9 we will add a TSH for the morning (5) HTN (hypertension): Typically taking ramipril for hypertension likely also to help prevent diabetic nephropathy this is automatically substituted to enalapril 20 (6) Sleep apnea: Patient will be on CPAP at night he says he said at 16 cm of water of [employer] is evaluate History of Present Illness Attending Physician: Tyrell Corbett, Patient underwent left total knee arthroplasty by Dr. Corbett on 08/19/2020. Patient suffers from diabetes taking Metformin hypertension taking ramipril wh ich we substitute enalapril. Hypothyroidism taking Synthroid 50 and BPH taking tamsulosin 0.8. Patient had preoperative medical clearance including a cardiac catheterization on August 10, 2020 with left coronary anatomy being there for significant stenosis however his right heart cath did suggest some mild volume overload and he had his diuretic increased to 1 mg Bumex twice daily at that point. This was done in the [facility] system. Allergies Allergy/AdvReac Type Severity Reaction Status Date / Time morphine Allergy Unknown Itchy, N/V Verified 08/19/20 08:40 Ssdzgnb-Ytb-[id number] Reductase AdvReac Unknown Severe Verified 08/19/20 08:40 Inhibitor myalgias Home Medications Medication Instructions Recorded Confirmed Type CoQ-10 1 dose PO QAM 07/16/20 08/19/20 History Vitamin B-12 1 dose PO QAM 07/16/20 08/19/20 History aspirin [Aspir-81] 81 mg PO QAM 07/16/20 08/19/20 History bumetanide [Bumex] 1 mg PO QAM 07/16/20 08/19/20 History cholecalciferol (vitamin D3) 25 mcg PO QAM 07/16/20 08/19/20 History [Vitamin D3] levothyroxine 50 mcg PO QAM 07/16/20 08/19/20 History metformin 500 mg PO BID 07/16/20 08/19/20 History omega-3 fatty acids [Fouke 3 Fish 1,000 mg PO QAM 07/16/20 08/19/20 History Oil] ramipril 5 mg PO QAM 07/16/20 08/19/20 History tamsulosin 0.8 mg PO HS 07/16/20 08/19/20 History Patient History Medical History (Updated 08/19/20 @ 15:44 by Tyrell Gonzalez MD) Aortic stenosis "Mild" aortic stenosis (MG 15mmhg, WALESKA 1.6cm2) per 05/2020 echo BPH (benign prostatic hyperplasia) CHF (congestive heart failure) Diastolic DM type 2 (diabetes mellitus, type 2) NIDDM History of COVID-19 03/2020 ([facility]). Symptoms at time of loss of taste/smell, sob, cough, congestion, fatigue > resolved except residual dyspnea (improved) and fatigue HLD (hyperlipidemia) HTN (hypertension) Hypothyroidism Morbid obesity Osteoarthritis Sleep apnea CPAP (compliant) Thrombocytopenia Chronic thrombocytopenia s/p unremarkable heme workup in 2014, no identified etiology, baseline platelets low 100's Tinnitus Surgical History History of cardiac catheterization 2018 ([facility]) > normal coronaries/diastolic HF History of carpal tunnel release Rt History of colonoscopy History of detached retina repair History of foot surgery Rt History of repair of right rotator cuff History of right knee joint replacement Right TKA (06/20/17): SAB at L3/L4 (x1 attempt) + PNB at [facility] Right Total Knee Arthroplasty utilizing [employer] journey to patient matched total knee arthroplasty size 7 femur 6 tibia 12 probably 35 oval patella History of tonsillectomy History of tooth extraction Family History Grandmother Diabetes Social History Smoking Status: Former smoker Smoking End Date: Quit 50 years ago; Second Hand Exposure: No; Do You Dip or Chew Tobacco: No; Tobacco Cessation Education Requested by Patient: No Hx Alcohol Use: No Hx Substance Use: No Preferred Language: Chinese Communication Ability: Effective Human Resources Partner Required: No Beliefs That Will Affect Care: None Current Living Situation: Spouse Feels Safe at Home: Yes Safety Concerns: Feels Safe At This Time Assistive Devices: Cane, Denture - Upper and Glasses Assistive Devices Comment: cane prn Review of Systems Review of Systems: Mild distress and fatigue patient is still groggy from anesthesia no headache, blurry or double vision no speech or swallowing issues no chest pain, pressure or palpitations no shortness of breath, cough or wheezes no abdominal pain, nausea or vomiting, diarrhea or constipation no dysuria, hematuria or frequency Mild left joint pain in his knee no back pain, CVA tenderness or radicular pain no bruising, bleeding or rashes no focal signs of weakness or numbness or altered sensation no complaints of anxiety or depression.. Physical Exam Physical Exam: The patient appeared well nourished and normally developed. Vital signs as documented. Head exam is normocephalic atraumatic Neck is without JVD, thyromegaly, or carotid bruits. Lungs are clear to auscultation, no focal loss of breath sounds Cardiac exam, Rhythm is regular.. No murmurs, rubs or gallops. Abdominal exam reveals normal bowel sounds, soft non tender, no masses Patient has bandage in place he has good strength and sensation distally and intact capillary refill Neurologic exam is alert and oriented, no focal loss of strength or sensation Psychologically is without concerns for anxiety or depression Results & Data Results & Data ([facility]) Vital Signs (Past 12 Hours) Vital Signs Temp Pulse Pulse Resp BP BP Pulse Ox 08/19/20 15:00 65 18 143/83 H 96 08/19/20 14:15 68 14 125/73 98 08/19/20 14:00 97.2 F L 67 14 130/69 96 08/19/20 13:50 68 14 127/75 96 08/19/20 13:40 66 14 132/73 96 08/19/20 13:30 67 14 139/71 97 08/19/20 13:20 67 12 140/73 96 08/19/20 13:10 68 12 107/67 98 08/19/20 13:00 68 12 132/72 97 08/19/20 12:53 98.1 F 71 12 135/64 97 08/19/20 08:45 98.1 F 71 20 143/84 H 98 PG Care Time/CCT Total # of Minutes Spent Total Time Spent with Patient: Total time spent is greater than 50% in coordination of care (as documented) at patient's floor/unit and/or counseling patient: Coding Level of Care Code 84575 Inpt Consult Level 3 Diagnoses S/P TKR (total knee replacement) Z96.659 CHF (congestive heart failure) I50.9 DM type 2 (diabetes mellitus, type 2) E11.9 Hypothyroidism E03.9 HTN (hypertension) I10 Sleep apnea G47.30
[2020-08-19] MEDS: INSULIN ASPART 100 UNITS/ML 3 ML PEN SC SCH ×2 (18:02→21:47)
[2020-08-19] MEDS: oxyCODONE HCL IR 5 MG TAB (IMMEDIATE RELEASE) PO PRN (18:08)
[2020-08-19] MEDS: ceFAZolin 2000MG 2,000 MG/15 ML SYR IV SCH (18:28)
[2020-08-19] MEDS ORDERED: SENNA 8.6 MG TAB PO SCH (21:00)
[2020-08-19] MEDS ORDERED: TAMSULOSIN HCL 0.4 MG CAP PO SCH (21:00)
[2020-08-19] MEDS: DOCUSATE SODIUM 100 MG CAP PO SCH (21:44)
[2020-08-19] MEDS: ASPIRIN 81 MG ECTAB PO SCH (21:44)
[2020-08-20] MEDS: ceFAZolin 2000MG 2,000 MG/15 ML SYR IV SCH (02:03)
[2020-08-20] MEDS: SODIUM CHLORIDE 0.9% 1000ML 1,000 ML IV SCH (02:10)
[2020-08-20 05:22] LABS: Hematocrit (blood only) 36.4 % (42-52); Hemoglobin 12.1 g/dL (14.0-18.0); Mean Corpuscular Hgb Conc 33.2 g/dL (32-36); Mean Corpuscular Volume 90.3 fL (80-100); Mean Platelet Volume 9.2 fL (7.4-10.4); Platelet Count 134 K/uL (130-400); RDW Coefficient of Variation 13.6 % (11.5-14.5); RDW Standard Deviation 45.1 fL (36.4-46.3); Red Blood Count 4.03 M/uL (4.7-6.1); White Blood Count 10.44 K/uL (4.8-10.8)
[2020-08-20 05:50] LABS: BUN Creatinine Ratio 25.9 (10-20); Calcium 8.2 mg/dl (8.5-10.1); Creatinine Clr Calc Pharmacy 82.9 ml/min; Est GFR (African American) 87.9 ml/min; Est GFR (Non-African American) 75.8 ml/min; Potassium 4.1 mmol/L (3.5-5.1)
[2020-08-20 06:01] LABS: Thyroid Stimulating Hormone 2.19 uIu/ml (0.300-4.500)
[2020-08-20] MEDS: ACETAMINOPHEN 500 MG TAB PO SCH (06:21)
[2020-08-20] MEDS ORDERED: LEVOTHYROXINE SODIUM 50 MCG TABLET PO SCH (06:30)
[2020-08-20] MEDS: oxyCODONE HCL IR 5 MG TAB (IMMEDIATE RELEASE) PO PRN (07:34)
[2020-08-20] MEDS: INSULIN ASPART 100 UNITS/ML 3 ML PEN SC SCH (08:33)
[2020-08-20] MEDS: DOCUSATE SODIUM 100 MG CAP PO SCH (08:36)
[2020-08-20] MEDS: ASPIRIN 81 MG ECTAB PO SCH (08:36)
--- NOTE | 2020-08-20 08:47 | Anesthesiology Progress Note ---
Date of Service August 20, 2020 Anesthesia Post Procedure Vital Signs Vital Signs: Temp Pulse Pulse Pulse Resp BP Pulse Ox 08/20/20 03:40 58 L 18 94 08/20/20 02:32 36.5 C 58 L 18 108/66 94 08/19/20 23:05 36.8 C 61 18 108/69 93 08/19/20 22:40 66 18 95 08/19/20 19:06 36.6 C 75 16 154/88 H 94 08/19/20 17:30 36.5 C 60 16 124/75 95 08/19/20 16:30 36.3 C L 65 16 138/82 98 08/19/20 15:00 65 18 143/83 H 96 08/19/20 14:15 68 14 125/73 98 08/19/20 14:00 36.2 C L 67 14 130/69 96 08/19/20 13:50 68 14 127/75 96 08/19/20 13:40 66 14 132/73 96 08/19/20 13:30 67 14 139/71 97 08/19/20 13:20 67 12 140/73 96 08/19/20 13:10 68 12 107/67 98 08/19/20 13:00 68 12 132/72 97 08/19/20 12:53 36.7 C 71 12 135/64 97 Pain Intensity Left Knee: Pain Intensity: 0 Notes Mental Status: alert / awake / arousable and participated in evaluation Patient Amnestic to Procedure: Yes Nausea / Vomiting: adequately controlled Pain: adequately controlled Airway Patency, RR, SpO2: stable & adequate BP & HR: stable & adequate Hydration State: stable & adequate Anesthetic Complications: no major complications apparent
[2020-08-20] MEDS ORDERED: COQ PO SCH (09:00)
[2020-08-20] MEDS ORDERED: MULTIVITAMIN TAB PO SCH (09:00)
[2020-08-20] MEDS ORDERED: ENALAPRIL MALEATE 10 MG TAB PO SCH (09:00)
[2020-08-20] MEDS ORDERED: BUMETANIDE 1 MG TAB PO SCH (09:00)
[2020-08-20] MEDS ORDERED: metFORMIN HCL 500 MG TAB PO SCH (09:00)
[2020-08-20] MEDS ORDERED: CHOLECALCIFEROL 1,000 UNITS 25 MCG TAB PO SCH (09:00)
--- NOTE | 2020-08-20 09:06 | Hospitalist Progress Note ---
Date of Service August 20, 2020 Assessment & Plan (1) S/P TKR (total knee replacement): POD1 s/p LEFT TKA with Dr. Corbett on 08/19 EBL 5cc. RAMYA 70cc. Pre-op h/h 13.9/42.6 H/h on AM labs 12.1/36.4 -- acute blood loss anemia from surgery and dilutional from IVF PT/OT/pain management per primary service DVT prophylaxis with ASA 81mg PO BID Plans for d/c today with home health then OPPT in 2 weeks after seen by Dr. Corbett. Did have some L foot drop d/t block from operation --> improving as day has gone on Dressing to be changed prior to d/c by ortho for possible malfunction with drain (2) CHF (congestive heart failure): HFpEF Seen in [place] August 2020 for L Heart cath. Anatomy intact but some elevated R sided pressures, mild-mod but not commented on Diuretic increased at that time : Bumex 1mg BID--> continued No s/sx volume overload (3) DM type 2 (diabetes mellitus, type 2): A1c 5.8, well controlled. Typically on Metformin 500mg BID and management per pharmacy while inpatient Resume home meds at d/c (4) Hypothyroidism: Prior TSH 4.Mar Repeat this AM 2.19 wnl Continued on levothyroxine 50mcg daily (5) HTN (hypertension): Enalapril 20mg in place of ramipril while inpatient as non-formularly BP controlled 138/80 Resume ramipril at d/c (6) Sleep apnea: CPAP HS 16cm H2O Dispo: d/c with home health planned for today Thank you for allowing hospitalist medicine to participate in the care of Mr Post. Signed off at this time. Call with any questions/concerns Admission and Anticipated Discharge Date Admission Date: August 19, 2020 Subjective Patient evaluated this afternoon. Up and dressed, ready for d/c. Pain controlled. Plans on home health and then OPPT in 2 weeks after seen by Dr. Corbett. Eating/drinking/voiding without issue. He notes some serous drainage around dressing and wondered if that was normal -- alerted EMMA Dan and believes drain and will change prior to d/c. No fever, chills, chest pain, shortness of breath, abdominal pain, n/v/dysuria at this time. Review of Systems Review of Systems: All systems reviewed & are unremarkable except as noted in HPI & below Physical Exam Physical Exam: The patient appeared well nourished and normally developed. Walking in room with walker. Head normocephalic, atraumatic Neck without JVD. trachea midline Lungs CTAP, no w/c/r Cardiac: RRR, no r/m/g Abd: +BS throughout, non-tender, non-distended Ext: Left knee dressing c/d/i . some serous drainage noted around incision near drain (alerted Sy OROSCO and to be changed prior to d/c). NVI. pulses palpable bilaterally. strength equal. Slight foot drop but improved since this AM per patient Neuro: moves all extremities Psych: AOx3, pleasant, cooperative Results & Data Results & Data ([facility]) Vital Signs (Past 12 Hours) Vital Signs Temp Pulse Pulse Resp BP Pulse Ox 08/20/20 08:54 36.7 C 58 L 16 138/80 96 08/20/20 03:40 58 L 18 94 08/20/20 02:32 36.5 C 58 L 18 108/66 94 08/19/20 23:05 36.8 C 61 18 108/69 93 08/19/20 22:40 66 18 95 Laboratory Results 08/20/20 08/20/20 08/20/20 Range/Units 08:12 05:10 05:10 WBC 10.44 (4.8-10.8) K/uL RBC 4.03 L (4.7-6.1) M/uL Hgb 12.1 L (14.0-18.0) g/dL Hct 36.4 L (42-52) % MCV 90.3 (80-100) fL MCH 30.0 (25-34) pg MCHC 33.2 (32-36) g/dL RDW Std Deviation 45.1 (36.4-46.3) fL RDW Coeff of Estuardo 13.6 (11.5-14.5) % Plt Count 134 (130-400) K/uL MPV 9.2 (7.4-10.4) fL Sodium 140 (136-145) mmol/L Potassium 4.1 (3.5-5.1) mmol/L Chloride 109 H (98-107) mmol/L Carbon Dioxide 29 (21-32) mmol/L Anion Gap 2.0 L (3-11) BUN 25 H (7-18) mg/dl Creatinine 0.95 (0.6-1.4) mg/dl Est Cr Clr Drug Dosing 82.9 ml/min Est GFR ( Amer) 87.9 ml/min Est GFR (Non-Af Amer) 75.8 ml/min BUN/Creatinine Ratio 25.9 H (10-20) Glucose 115 H (70-99) mg/dl POC Glucose 109 H (70-99) mg/dl Calcium 8.2 L (8.5-10.1) mg/dl TSH 2.190 (0.300-4.500) uIu/ml 08/19/20 08/19/20 08/19/20 Range/Units 20:46 17:08 12:59 WBC (4.8-10.8) K/uL RBC (4.7-6.1) M/uL Hgb (14.0-18.0) g/dL Hct (42-52) % MCV (80-100) fL MCH (25-34) pg MCHC (32-36) g/dL RDW Std Deviation (36.4-46.3) fL RDW Coeff of Estuardo (11.5-14.5) % Plt Count (130-400) K/uL MPV (7.4-10.4) fL Sodium (136-145) mmol/L Potassium (3.5-5.1) mmol/L Chloride (98-107) mmol/L Carbon Dioxide (21-32) mmol/L Anion Gap (3-11) BUN (7-18) mg/dl Creatinine (0.6-1.4) mg/dl Est Cr Clr Drug Dosing ml/min Est GFR ( Amer) ml/min Est GFR (Non-Af Amer) ml/min BUN/Creatinine Ratio (10-20) Glucose (70-99) mg/dl POC Glucose 178 H 131 H 154 H (70-99) mg/dl Calcium (8.5-10.1) mg/dl TSH (0.300-4.500) uIu/ml PG Care Time/CCT Total # of Minutes Spent Total Time Spent with Patient: Total time spent is greater than 50% in coordination of care (as documented) at patient's floor/unit and/or counseling patient: Coding Level of Care Code 23167 Subseq Hosp Care Lvl 2 Diagnoses S/P TKR (total knee replacement) Z96.659 CHF (congestive heart failure) I50.9 DM type 2 (diabetes mellitus, type 2) E11.9 Hypothyroidism E03.9 HTN (hypertension) I10 Sleep apnea G47.30
--- NOTE | 2020-08-20 09:32 | Orthopedic Progress Note ---
Date of Service August 20, 2020 Assessment & Plan (1) Arthritis of knee, left: Postop day 1 status post left total knee arthroplasty PT/OT protocols. Weightbearing as tolerated. DVT prophylaxis-aspirin p.o. twice daily, SCDs, JAYY sainz. Pain management as written. DC planning-patient is planning for home health services upon discharge. Admission and Anticipated Discharge Date Admission Date: August 19, 2020 Subjective Postop day 1 Patient sitting at bedside. No complaints this morning. Pain is controlled. Denies shortness of breath, chest pain, lightheadedness. Patient is hoping to go home today. Physical Exam Physical Exam: Dressings are clean, dry, and intact. Calves are soft nontender. He has weakness with dorsiflexion of the ankle at this point in time. He has strong plantarflexion. He has some slight decrease sensation over the dorsum of the foot. Hemovac drainage was minimal. Results & Data ([facility]) Vital Signs (Past 12 Hours) Vital Signs Temp Pulse Pulse Resp BP Pulse Ox 08/20/20 08:54 36.7 C 58 L 16 138/80 96 08/20/20 03:40 58 L 18 94 08/20/20 02:32 36.5 C 58 L 18 108/66 94 08/19/20 23:05 36.8 C 61 18 108/69 93 08/19/20 22:40 66 18 95 Laboratory Results Laboratory Results WBC 10.44 K/uL (4.8-10.8) 08/20/20 05:10 RBC 4.03 M/uL (4.7-6.1) L 08/20/20 05:10 Hgb 12.1 g/dL (14.0-18.0) L 08/20/20 05:10 Hct 36.4 % (42-52) L 08/20/20 05:10 MCV 90.3 fL (80-100) 08/20/20 05:10 MCH 30.0 pg (25-34) 08/20/20 05:10 MCHC 33.2 g/dL (32-36) 08/20/20 05:10 RDW Std Deviation 45.1 fL (36.4-46.3) 08/20/20 05:10 RDW Coeff of Estuardo 13.6 % (11.5-14.5) 08/20/20 05:10 Plt Count 134 K/uL (130-400) 08/20/20 05:10 MPV 9.2 fL (7.4-10.4) 08/20/20 05:10 Immature Gran % (Auto) 0.3 % 07/20/20 13:46 Neut % (Auto) 70.3 % 07/20/20 13:46 Lymph % (Auto) 19.9 % 07/20/20 13:46 Hodgeman % (Auto) 7.9 % 07/20/20 13:46 Eos % (Auto) 1.6 % 07/20/20 13:46 Baso % (Auto) 0.0 % 07/20/20 13:46 Neut # (Auto) 2.58 K/uL (1.4-6.5) 07/20/20 13:46 Lymph # (Auto) 0.73 K/uL (1.2-3.4) L 07/20/20 13:46 Hodgeman # (Auto) 0.29 K/uL (0.11-0.59) 07/20/20 13:46 Eos # (Auto) 0.06 K/uL (0-0.5) 07/20/20 13:46 Baso # (Auto) 0.00 K/uL (0-0.2) 07/20/20 13:46 Immature Gran # (Auto) 0.01 K/uL (0.00-0.02) 07/20/20 13:46 PT 10.7 Seconds (9.0-12.0) 07/20/20 13:46 INR 1.1 (0.9-1.1) 07/20/20 13:46 APTT 30.8 Seconds (21.0-31.0) 07/20/20 13:46 PTT Ratio 1.2 07/20/20 13:46 Sodium 140 mmol/L (136-145) 08/20/20 05:10 Potassium 4.1 mmol/L (3.5-5.1) 08/20/20 05:10 Chloride 109 mmol/L (98-107) H 08/20/20 05:10 Carbon Dioxide 29 mmol/L (21-32) 08/20/20 05:10 Anion Gap 2.0 (3-11) L 08/20/20 05:10 BUN 25 mg/dl (7-18) H 08/20/20 05:10 Creatinine 0.95 mg/dl (0.6-1.4) 08/20/20 05:10 Est Cr Clr Drug Dosing 82.9 ml/min 08/20/20 05:10 Est GFR ( Amer) 87.9 ml/min 08/20/20 05:10 Est GFR (Non-Af Amer) 75.8 ml/min 08/20/20 05:10 BUN/Creatinine Ratio 25.9 (10-20) H 08/20/20 05:10 Glucose 115 mg/dl (70-99) H 08/20/20 05:10 POC Glucose 109 mg/dl (70-99) H 08/20/20 08:12 Estimat Average Glucose 120 mg/dl 07/20/20 13:46 Hemoglobin A1c 5.8 % (4.5-5.6) H 07/20/20 13:46 Calcium 8.2 mg/dl (8.5-10.1) L 08/20/20 05:10 Albumin 3.9 gm/dl (3.4-5.0) 07/20/20 13:46 TSH 2.190 uIu/ml (0.300-4.500) 08/20/20 05:10 Urine Color Yellow 07/20/20 13:46 Urine Appearance Clear (Clear) 07/20/20 13:46 Urine pH 7.0 (4.5-7.5) 07/20/20 13:46 Ur Specific Gaffney 1.014 (1.000-1.030) 07/20/20 13:46 Urine Protein Negative (Negative) 07/20/20 13:46 Urine Glucose (UA) Negative (Negative) 07/20/20 13:46 Urine Ketones Negative (Negative) 07/20/20 13:46 Urine Blood Negative (Negative) 07/20/20 13:46 Urine Nitrite Negative (Negative) 07/20/20 13:46 Urine Bilirubin Negative (Negative) 07/20/20 13:46 Urine Urobilinogen Negative (Negative) 07/20/20 13:46 Ur Leukocyte Esterase Negative (Negative) 07/20/20 13:46 COVID-19 Eval Order Covid19 IDNow [facility] 08/19/20 08:41 SARS-CoV-2, RNA, NAAT NEGATIVE (NEGATIVE) 08/19/20 08:41 Blood Type A Positive 07/20/20 13:46 Antibody Screen NEGATIVE 07/20/20 13:46 Knee X-Ray 08/19/20 12:54 XR knee LT 1 or 2V routine HISTORY: 80 years-old Male Surgical Post Op left knee total joint arthroplasty COMPARISON: None TECHNIQUE: 2 views of the left knee FINDINGS: Left knee total joint arthroplasty and patella resurfacing. Anterior midline skin jurgen with surgical drainage catheter, expected postoperative soft tissue swelling with deep tissue air. No acute fracture, alignment or unexpected opaque foreign body. An electronic battery pack projects over the lateral distal thigh. IMPRESSION: Left knee total joint arthroplasty and patella resurfacing with expected postoperative changes. ACT 112: Negative or not required by law. The above report was generated using voice recognition software. It may contain grammatical, syntax or spelling errors. Electronically signed by: Lico Donnelly M.D. 08/19/2020 1:27 PM
--- NOTE | 2020-08-20 13:28 | Discharge Summary ---
Date of Service August 20, 2020 Admission HPI Per Admitting Provider Gerardo is a 80 year old male who complains of left knee pain, presents for pre-op evaluation prior to a left total knee replacement by Dr Corbett at [facility]. He complains of pain, decreased range of motion, instability and stiffness in his left knee. He states that the symptoms have been chronic and non-traumatic. Currently the patient states that the symptoms are moderate-severe and rates his pain as 6/10. His pain is described as aching, sharp and throbbing. His symptoms are aggravated by ascending stairs, daily activities, first steps while awake walking. Prior NSAIDs include Aleve. He has been treated with previous visco injections in the past without much relief. he uses a brace on his knee as well as sometimes uses a cane. Admission Exam Per Admitting Provider Physical Exam: HT: 5ft 10in WT: 127.5kg BP: 122/78 Pulse: 63 Constitutional: WD/WN, vitals as above no acute distress Respiratory: normal respiratory effort, lungs clear to auscultation no respiratory distress, no labored breathing and does not use accessory muscles Cardiovascular: RRR, no murmur, no edema Gastrointestinal (Abdomen): normal bowel sounds, soft, nontender, no hepatosplenomegaly Musculoskeletal: Knee: + knee abnormal to inspection (Left Knee- ), + effusion (+1 effusion), + limited ROM of knee (ROM 0/3/110), + knee ROM with crepitation, + joint line tenderness (medial joint line) and + Huan's sign positive; no deformity, no skin erythema, no ecchymosis, no valgus laxity, no varus laxity, anterior drawer test negative, Mynor's sign negative and pivot shift test negative Principal Diagnosis Left knee osteoarthritis Discharge Data Allergies Allergy/AdvReac Type Severity Reaction Status Date / Time morphine Allergy Unknown Itchy, N/V Verified 08/19/20 08:40 Wodwinc-Ypl-Bsq Reductase AdvReac Unknown Severe Verified 08/19/20 08:40 Inhibitor myalgias Consultations 08/19/20 14:28 Consult Hospitalist Routine Procedures Performed Operation Date: 08/19/20 10:50 Actual Procedures p Left Total Knee Arthroplasty - Tyrell Corbett DO Ordered Studies 08/19/20 05:00 US - OR guided needle placemen Routine Hospital Course (1) Arthritis of knee, left: GERARDO OLVERA Date: 08/19/20MR#: [id number] Phy: Tyrell Corbett D.O.Acct ID:[id number] Phy: PCP,NOBirth Date: 1940Fam Phy:Age: 80Location: 3WSex: M Room/Bed: [facility] cc: ~ *NOTICE TO RECEIVING CONSTITUTION PARTY/AGENCY This information is strictly Confidential and protected under [place] law. [place] law prohibits you from making any further disclosure of this information unless further disclosure is expressly permitted by the written consent of the person to whom it pertains or is authorized by law. A general authorization for the release of medical or other information is not sufficient for this purpose. Hospital accepts no responsibility if the information is made available to any other person, INCLUDING THE PATIENT. [id number] (Blank) Addendum August 20, 2020 12:48 Pt states his foot motion is slowly getting better. Progressed well with his physical therapy and Occupational Therapy. Plan for DC home today and f/u in 10-14 days from the day of surgery. Addendum Signed By:<Electronically signed by Sy Stanford PA-C>08/20/209Addendum Cosigned By: Created: 08/20/20 [id number] (Blank) Addendum August 20, 2020 09:43 Foot drop likely secondary to intraop injection of "joint cocktail mix" . Will follow this AM. Discussed with patient that this usually resolves slowly over the day. Pt understands. Addendum Signed By:<Electronically signed by Sy Stanford PA-C>08/20/20944Addendum Cosigned By: Created: 08/20/20 Date of Service August 20, 2020 Assessment & Plan (1) Arthritis of knee, left: Postop day 1 status post left total knee arthroplasty PT/OT protocols. Weightbearing as tolerated. DVT prophylaxis-aspirin p.o. twice daily, JAYY Balderas. Pain management as written. DC planning-patient is planning for home health services upon discharge. Admission and Anticipated Discharge Date Admission Date: August 19, 2020 Subjective Postop day 1 Patient sitting at bedside. No complaints this morning. Pain is controlled. Denies shortness of breath, chest pain, lightheadedness. Patient is hoping to go home today. Physical Exam Physical Exam: Dressings are clean, dry, and intact. Calves are soft nontender. He has weakness with dorsiflexion of the ankle at this point in time. He has strong plantarflexion. He has some slight decrease sensation over the dorsum of the foot. Hemovac drainage was minimal. Results & Data ([facility]) Vital Signs (Past 12 Hours) Vital Signs Temp Pulse Pulse Resp BP Pulse Ox 08/20/20 08:54 36.7 C 58 L 16 138/80 96 08/20/20 03:40 58 L 18 94 08/20/20 02:32 36.5 C 58 L 18 108/66 94 08/19/20 23:05 36.8 C 61 18 108/69 93 08/19/20 22:40 66 18 95 Laboratory Results Laboratory Results WBC 10.44 K/uL (4.8-10.8) 08/20/20 05:10 RBC 4.03 M/uL (4.7-6.1) L 08/20/20 05:10 Hgb 12.1 g/dL (14.0-18.0) L 08/20/20 05:10 Hct 36.4 % (42-52) L 08/20/20 05:10 MCV 90.3 fL (80-100) 08/20/20 05:10 MCH 30.0 pg (25-34) 08/20/20 05:10 MCHC 33.2 g/dL (32-36) 08/20/20 05:10 RDW Std Deviation 45.1 fL (36.4-46.3) 08/20/20 05:10 RDW Coeff of Estuardo 13.6 % (11.5-14.5) 08/20/20 05:10 Plt Count 134 K/uL (130-400) 08/20/20 05:10 MPV 9.2 fL (7.4-10.4) 08/20/20 05:10 Immature Gran % (Auto) 0.3 % 07/20/20 13:46 Neut % (Auto) 70.3 % 07/20/20 13:46 Lymph % (Auto) 19.9 % 07/20/20 13:46 [place] % (Auto) 7.9 % 07/20/20 13:46 Eos % (Auto) 1.6 % 07/20/20 13:46 Baso % (Auto) 0.0 % 07/20/20 13:46 Neut # (Auto) 2.58 K/uL (1.4-6.5) 07/20/20 13:46 Lymph # (Auto) 0.73 K/uL (1.2-3.4) L 07/20/20 13:46 [place] # (Auto) 0.29 K/uL (0.11-0.59) 07/20/20 13:46 Eos # (Auto) 0.06 K/uL (0-0.5) 07/20/20 13:46 Baso # (Auto) 0.00 K/uL (0-0.2) 07/20/20 13:46 Immature Gran # (Auto) 0.01 K/uL (0.00-0.02) 07/20/20 13:46 PT 10.7 Seconds (9.0-12.0) 07/20/20 13:46 INR 1.1 (0.9-1.1) 07/20/20 13:46 APTT 30.8 Seconds (21.0-31.0) 07/20/20 13:46 PTT Ratio 1.2 07/20/20 13:46 Sodium 140 mmol/L (136-145) 08/20/20 05:10 Potassium 4.1 mmol/L (3.5-5.1) 08/20/20 05:10 Chloride 109 mmol/L (98-107) H 08/20/20 05:10 Carbon Dioxide 29 mmol/L (21-32) 08/20/20 05:10 Anion Gap 2.0 (3-11) L 08/20/20 05:10 BUN 25 mg/dl (7-18) H 08/20/20 05:10 Creatinine 0.95 mg/dl (0.6-1.4) 08/20/20 05:10 Est Cr Clr Drug Dosing 82.9 ml/min 08/20/20 05:10 Est GFR ( Amer) 87.9 ml/min 08/20/20 05:10 Est GFR (Non-Af Amer) 75.8 ml/min 08/20/20 05:10 BUN/Creatinine Ratio 25.9 (10-20) H 08/20/20 05:10 Glucose 115 mg/dl (70-99) H 08/20/20 05:10 POC Glucose 109 mg/dl (70-99) H 08/20/20 08:12 Estimat Average Glucose 120 mg/dl 07/20/20 13:46 Hemoglobin A1c 5.8 % (4.5-5.6) H 07/20/20 13:46 Calcium 8.2 mg/dl (8.5-10.1) L 08/20/20 05:10 Albumin 3.9 gm/dl (3.4-5.0) 07/20/20 13:46 TSH 2.190 uIu/ml (0.300-4.500) 08/20/20 05:10 Urine Color Yellow 07/20/20 13:46 Urine Appearance Clear (Clear) 07/20/20 13:46 Urine pH 7.0 (4.5-7.5) 07/20/20 13:46 Ur Specific [place] 1.014 (1.000-1.030) 07/20/20 13:46 Urine Protein Negative (Negative) 07/20/20 13:46 Urine Glucose (UA) Negative (Negative) 07/20/20 13:46 Urine Ketones Negative (Negative) 07/20/20 13:46 Urine Blood Negative (Negative) 07/20/20 13:46 Urine Nitrite Negative (Negative) 07/20/20 13:46 Urine Bilirubin Negative (Negative) 07/20/20 13:46 Urine Urobilinogen Negative (Negative) 07/20/20 13:46 Ur Leukocyte Esterase Negative (Negative) 07/20/20 13:46 COVID-19 Eval Order Covid19 IDNow [facility] 08/19/20 08:41 SARS-CoV-2, RNA, NAAT NEGATIVE (NEGATIVE) 08/19/20 08:41 Blood Type A Positive 07/20/20 13:46 Antibody Screen NEGATIVE 07/20/20 13:46 Knee X-Ray 08/19/20 12:54 XR knee LT 1 or 2V routine HISTORY: 80 years-old Male Surgical Post Op left knee total joint arthroplasty COMPARISON: None TECHNIQUE: 2 views of the left knee FINDINGS: Left knee total joint arthroplasty and patella resurfacing. Anterior midline skin jurgen with surgical drainage catheter, expected postoperative soft tissue swelling with deep tissue air. No acute fracture, alignment or unexpected opaque foreign body. An electronic battery pack projects over the lateral distal thigh. IMPRESSION: Left knee total joint arthroplasty and patella resurfacing with expected postoperative changes. Total Time Total Time Spent Total Time Spent (In Minutes): 5 Discharge Plan Discharge Items Patient Disposition: Home - Home Health Services Reason For Visit: Osteoarthritis Left Knee Discharge Diagnosis: Osteoarthritis left knee Activity: Per Instructions section Weightbearing: Left weightbearing Weightbearing Comment: As tolerated with walker Non-emergency contact: Surgeon Call non-emergency contact if: you have any medication questions, your pain is not controlled, your temperature is above 101.5, your wound has increased redness and your wound has increased drainage Follow-up/Referrals: PCP,NO [Primary Care Provider] - Diet: Carb Consistent or DM2 Addtl Attending Provider Instructions: ACTIVITY RECOMMENDATIONS: SELF CARE INSTRUCTIONS AFTER TOTAL KNEE REPLACEMENT A. You may need to continue a physical therapy program after discharge from the hospital. There are several options available to you. Your doctor will assist you in selecting the best one for you. 1. An out-patient facility 2 to 3 times a week for therapy or home therapy. 2. Continue working on all exercises taught to you in the hospital. Your goals should be to increase bending of your knee to 90 degrees and beyond and to fully straighten your knee. B. You may progress at your own pace from walking with a walker or crutches to a cane; then to no assistive devices. C. Make walking a part of your daily routine. Be up as much as comfortable with rest periods throughout the day. Rest with leg elevation is very important. Use the ice wrap frequently for the first 3-4 weeks. D. There are no restrictions on activities. You may ride in a car, shop, participate in railroad car loader and all social activities. E. Wear the long elastic stockings (JAYY hose) 20 hours a day for 2 weeks after surgery. They can be removed several times a day for laundering and for a bath. F. You may shower, no tub baths until cleared by your doctor. SPECIAL CARE INSTRUCTIONS: VERY IMPORTANT TO READ AND REVIEW A. There are a few signs you need to watch for after you are home. Call [facility] if you notice any of the followin. Increased severe knee pain. Some pain is expected especially when you exercise. 2. Increased swelling in your leg or knee; pain or swelling of the calf muscle in either lower leg. 3. Any fluid drainage from the incision. 4. Shortness of breath or chest pain. B. Please call [facility] at if you have any concerns or questions about your operation or recovery. The doctor or his nurse will return your call promptly. C. You must take antibiotics before dental work, bladder, bowel or other surgery. Your doctor will provide you with a permanent care to carry describing this precaution. IMPORTANT: * REMEMBER TO TAKE ASPIRIN, 81 MG, TWICE DAILY FOR 4 WEEKS UNLESS OTHERWISE DIRECTED. THIS IS YOUR BLOOD THINNER. * HIGH RISK PATIENTS MAY BE PRESCRIBED A STRONGER BLOOD THINNER. THIS WILL BE PROVIDED AT DISCHARGE. * CALL IF INCREASED PAIN, REDNESS, DRAINAGE OR FEVER GREATER THAT 101. * WEAR JAYY HOSE 20 HOURS PER DAY FOR 2 WEEKS. * LESA Dressing - This is a large suction dressing covering your incision. This will help pull any excess drainage from the wound and allow your incision to heal properly. You may shower with this if you can keep the unit outside of the shower. If any bleeding or leakage is noted please call your doctor's office. This will remain on your incision for 7 days and then should be removed. This can be done yourself or by the home nursing staff if applicable. The entire unit is disposable once removed. Once removed, keep incision clean and dry. If redness or drainage is noted, please call your surgeon. . FOLLOW UP VISIT: If appointment is not already scheduled: Please call [facility] to make a follow-up appointment for 2 weeks after your surgery at . Stand-Alone Forms: [employer] Smoking Cessation Medications and DC Order Prescriptions: New aspirin 81 mg Tablet,Delayed Release (Dr/Ec) 81 mg PO BID 30 Days Qty: 60 RF: 0 acetaminophen 500 mg Tablet 1,000 mg PO Q8 14 Days Qty: 84 RF: 0 polyethylene glycol 3350 [Miralax] 17 gram powder in packet 17 g PO DAILY PRN (Reason: constipation) Qty: 5 RF: 0 cefadroxil 500 mg capsule 500 mg PO BID Qty: 28 RF: 1 oxycodone 5 mg Tablet 5 mg PO Q4H MDD 6 PRN (Reason: pain) Qty: 30 RF: 0 Continued metformin 500 mg Tablet 500 mg PO BID RF: 0 tamsulosin 0.4 mg Capsule 0.8 mg PO HS RF: 0 levothyroxine 50 mcg Tablet 50 mcg PO QAM RF: 0 bumetanide 1 mg Tablet 1 mg PO QAM RF: 0 ramipril 5 mg Tablet 5 mg PO QAM RF: 0 cholecalciferol (vitamin D3) [Vitamin D3] 25 mcg (1,000 unit) Tablet,Chewable 25 mcg PO QAM RF: 0 CoQ-10 1 dose PO QAM RF: 0 Vitamin B-12 1 dose PO QAM RF: 0 Discontinued aspirin [Aspir-81] 81 mg Tablet,Delayed Release (Dr/Ec) 81 mg PO QAM RF: 0 [place] 3 Fish Oil Capsule 1,000 mg PO QAM RF: 0 Discharge Orders: Discharge Order (Routine); Ordered 08/20/20 Ordered By: Sy Stanford Admission Data Admit Date/Time: 08/19/20 12:54 Attending Provider: Tyrell Corbett Admit Provider: Tyrell Corbett Primary Care Provider: PCP,NO Other Providers: Tish Bishop Other Interventions: Discharge Summary Assessment (RN) Last Done: 08/20/20 11:14
== END 2020-08-20 13:28 | disposition home health service (06) ==
LOC: PAT 08:17 → 3W 08:17

== ENCOUNTER 2023-05-17 14:10 | Inpatient (IN) ==
--- NOTE | 2023-05-17 14:26 | ED Triage Note ---
Date of Service May 17, 2023 Provider in Triage Author: Josie Villanueva History of Present Illness This patient was briefly evaluated while in triage. An abbreviated physical exam was performed. This patient is a 83-year-old Male who presents to the ED for evaluation of decreased appetite, n/vomiting x 1 month. Notes associated constipation recently but had BM today after OTC laxatives. Denies fevers, chest pain, abdominal pain, urinary symptoms. Notes SOB secondary to CHF. Follows w Dr. English. Physical Exam Constitutional: alert and oriented x3. no acute distress. HEENT: normocephalic, atraumatic. normal conjunctiva.PERRLA. EOM's grossly intact. Respiratory: equal chest rise. normal respiratory effort, no accessory muscle use. Cardiovascular: regular rate and rhythm. MSK: moves all 4 extremities spontaneously Psych:appropriate mood and affect. Initial orders for labs and / or imaging were placed and patient was placed in the waiting area until a bed is available. Please see further documentation for the full ED course.
--- NOTE | 2023-05-17 15:18 | XRay Report ---
SINGLE VIEW CHEST CLINICAL HISTORY: Dyspnea FINDINGS: A PA chest radiograph is compared to study dated 07/28/2022. The heart is mildly enlarged no ting atherosclerotic calcification of the thoracic aorta. The pulmonary vasculature is noncongested. The lungs and pleural spaces are clear. No pneumothorax is seen. The skeletal structures are osteopen ic. The bony thorax is grossly intact. A surgical anchor is noted in the right humeral head. Arthriti c change is seen in the shoulders. IMPRESSION: No active disease in the chest. ACT 112: Negative or not required by law. Electronically signed by: Tevin Hernandez M.D. 05/17/2023 3:17 PM
[2023-05-17 15:51] LABS: Basophils # (auto) 0.02 K/uL (0.00-0.20); Basophils % (auto) 0.2 %; Eosinophils # (auto) 0.09 K/uL (0.00-0.50); Hematocrit (blood only) 43.7 % (42.0-52.0); Hemoglobin 14.9 g/dl (14.0-18.0); Immature Granulocytes # (auto) 0.04 K/uL (0.01-0.20); Immature Granulocytes % (auto) 0.4 %; Lymphocytes # (auto) 1.02 K/uL (1.20-3.40); Lymphocytes % (auto) 11.1 %; Mean Corpuscular Hemoglobin 28.4 pg (25.0-34.0); Mean Corpuscular Hgb Conc 34.1 g/dL (32.0-36.0); Mean Corpuscular Volume 83.2 fL (80.0-100.0); Monocytes # (auto) 0.57 K/uL (0.11-0.59); Monocytes % (auto) 6.2 %; Neutrophils # (auto) 7.48 K/uL (1.40-6.50); Neutrophils % (auto) 81.1 %; Platelet Count 237 K/uL (130-400); RDW Coefficient of Variation 13.4 % (11.5-14.5); RDW Standard Deviation 40.6 fL (36.4-46.3); Red Blood Count 5.25 M/uL (4.70-6.10); White Blood Count 9.22 K/ul (4.8-10.8)
[2023-05-17 16:08] LABS: Albumin Level 4.4 gm/dl (3.4-5.0); BUN Creatinine Ratio 41.8 (10-20); Bilirubin,Total 1.2 mg/dl (0.2-1.0); Calcium 10.7 mg/dl (8.6-10.3); Creatinine Clr Calc Pharmacy 44.8 ml/min; Est GFR (African American) 48.4 ml/min; Est GFR (Non-African American) 41.7 ml/min; Globulin 4.2 gm/dl (2.5-4.0); Potassium 2.8 mmol/L (3.5-5.1); Total Protein 8.6 gm/dl (6.0-8.3)
[2023-05-17 16:18] LABS: Troponin I High Sensitivity 195.3 pg/ml (0-20)
--- NOTE | 2023-05-17 16:22 | Emergency Department Note ---
Impression & Plan Nausea, Hypokalemia, Elevated troponin, Elevated brain natriuretic peptide (BNP) level ED Provider Note ED Provider Note NAME: RHONDA OLVERA AGE:83 SEX: Male : 1940 ARRIVES VIA: private vehicle INFORMANT: Patient ED PROVIDER(s): Shy Duarte DO CHIEF COMPLAINT: Referred by cardiology HPI: This is an 83-year-old male presents emergency room after being referred here by cardiology due to concern for persistent nausea and poor p.o. intake. Patient states he was referred here by his intensive care ambulance paramedic on [facility] in [place], Dr. English. He states this been ongoing for about 1 month. He states his medications had been changed just prior to the onset of the symptoms and his intensive care ambulance paramedic is suspicious of kidney injury contributing. He states the leg swelling he did have due to his history of congestive heart failure has improved as he does take diuretics daily. He denies any chest pain, difficulty breathing, fevers or chills, abdominal pain, or difficulty urinating. Denies any recent cough or cold-like symptoms. He states he has no pain with swallowing or difficulty swallowing, but even sometimes the smell of food makes him more nauseated. States he has had gagging but no fulminant vomiting. He was recently constipated additionally although did have a bowel movement this morning. PAST MEDICAL HISTORY:See Below PAST SURGICAL HISTORY:See Below FAMILY HISTORY:See Below SOCIAL HISTORY:See Below HOME MEDICATIONS:See Below ALLERGIES:See Below VITALS:See Below PHYSICAL EXAMINATION: GENERAL: alert, well appearing, well nourished, no distress, non-toxic EYE EXAM: normal conjunctiva, PERRL and EOM's grossly intact OROPHARYNX: no exudate, no erythema, lips, buccal mucosa, and tongue normal and mucous membranes are moist NECK: supple, no nuchal rigidity, no adenopathy, non-tender LUNGS: Clear to auscultation. Normal chest wall mechanics, no w/r/r HEART: no murmurs, S1 normal and S2 normal ABDOMEN: abdomen soft, non-tender, normo-active bowel sounds, no masses, no rebound or guarding. BACK: Back is symmetrical on inspection and there is no deformity, no midline tenderness, no CVA tenderness. SKIN: no rashes, petechiae, orbruising UPPER EXTREMITIES: upper extremities are grossly normal. FROM, nml pulses b/l. LOWER EXTREMITIES: No pitting edema. FROM, nml pulses b/l. NEURO EXAM: Normal sensorium, cranial nerves II-XII grossly intact, normal speech, no facial droop,nogross weakness of arms, no gross weakness of legs. Gross sensation intact. No ataxia. Vital Signs: reviewed and remarkable Differential Diagnosis: Dehydration, electrolyte abnormality, ACS, CHF, medication ADR, viral syndrome, PUD, GERD, pneumonia, as well as others were considered MEDICAL DECISION MAKING: This is an 83-year-old male presents emergency department after being referred here by his intensive care ambulance paramedic due to concern for persistent nausea and decreased oral intake. Patient had changes made to his medication regimen a little more than a month ago before symptoms began. Patient initially seen in a waiting room area as there were no available regular ER beds. Labs drawn and sent, IV established, EKG and chest x-ray performed and interpreted by me. Once a regular room was available patient was monitored on telemetry additionally. Labs revealed hypokalemia, CASSIA, elevated BNP and elevated troponin. No priors are available for comparison. Patient denies any chest pain or difficulty breathing. Exam not consistent with acute CHF. Patient given oral potassium repletion. Due to consideration for several normalities as well as a significant cardiac history, case discussed with the hospitalist team for additional evaluation and management. Consultation(s): 1804: Discussed with Dr. Eubanks, [facility] hospitalist team, for additional evaluation and management. ER Treatment Provided: See below Diagnostics Interpreted By Me: -ECG: Normal sinus at 66 with first-degree AV block, rightward axis, normal QRS but prolonged QTc, nonspecific ST/T wave change -Cardiac Monitoring: An order was placed for continuous cardiac monitoring. The monitor shows a rate of 66 with normal sinus rhythm. -Laboratory studies: As stated above and show below. -Imaging studies: X-ray Chest: A single view study of the chest was reviewed and was negative for cardiomegaly, focal infiltrate, effusion, pulmonary edema, or wide mediastinum. Triage Nursing Note Reviewed Prior/Outside [facility] with Dr. English reviewed Past Med/Surg History Medical History (Updated 05/17/23 @ 19:08 by En Eubanks MD) Chronic shortness of breath Usually with activity - worse in the morning- ongoing x years - has had full cardiac and pulmonary work up- no acute issues with exception to chronic CHF- currently controlled Aortic stenosis "Mild" aortic stenosis >FOLLOWED BY DR. WES PENN Hypothyroidism DM type 2 (diabetes mellitus, type 2) NIDDM Glucose well controlled History of COVID-19 03/2020 ([facility]). Symptoms at time of loss of taste/smell, sob, cough, congestion, fatigue > resolved except residual dyspnea (improved) and fatigue Tinnitus HTN (hypertension) Sleep apnea CPAP CHF (congestive heart failure) On diuretic BPH (benign prostatic hyperplasia) Surgical History History of total knee replacement RT/LEFT History of cholecystectomy H/O vascular surgery LEFT VEIN ABLATION History of detached retina repair History of tonsillectomy History of tooth extraction History of repair of right rotator cuff History of foot surgery Rt History of colonoscopy History of carpal tunnel release Rt History of cardiac catheterization X 4>NO STENTS (LAST CATH NOVEMBER 2021 [facility]) Family History (Updated 10/03/22 @ 13:51 by David Young) Grandmother Diabetes Father Prostate cancer Other Cancer Heart disease No family history of adverse response to anesthesia Social History Smoking Status: Never smoker Second Hand Exposure: No; Do You Dip or Chew Tobacco: No; Hx Alcohol Use: No Preferred Language: Yoruba Communication Ability: Effective Bond Clerk Required: No Beliefs That Will Affect Care: None Current Living Situation: Spouse Feels Safe at Home: Yes Assistive Devices: CPAP, Denture - Upper and Glasses Allergies Allergies Allergy/AdvReac Type Severity Reaction Status Date / Time sacubitril [From Entresto] Allergy Intermediate Rash Verified 05/17/23 16:48 valsartan [From Entresto] Allergy Intermediate Rash Verified 05/17/23 16:48 morphine Allergy Mild Itchy, N/V Verified 05/17/23 16:48 Daluymf-IID-ZkF Reductase AdvReac Intermediate Severe Verified 05/17/23 16:48 Inhibitor myalgias [Gnexwms-Ikh-Mwy Reductase Inhibitor] Home Meds Home Medications Medication Instructions Recorded Confirmed levothyroxine 50 mcg tablet 50 mcg PO QAM 07/16/20 05/17/23 metformin 500 mg tablet 500 mg PO BID 07/16/20 05/17/23 tamsulosin 0.4 mg capsule 0.8 mg PO DAILY 07/16/20 05/17/23 aspirin 81 mg tablet,delayed 81 mg PO QAM 07/20/22 05/17/23 release multivitamin 1 tab PO QAM 07/20/22 05/17/23 spironolactone 25 mg tablet 25 mg PO QAM 07/20/22 05/17/23 albuterol sulfate 90 mcg/actuation 2 puff inhalation QID 05/17/23 05/17/23 aerosol inhaler bumetanide 1 mg tablet 2 mg PO AMHS 05/17/23 05/17/23 metolazone 5 mg tablet 5 mg PO UD 05/17/23 05/17/23 potassium chloride 10 mEq 10 meq PO AMHS 05/17/23 05/17/23 tablet,extended release(part/cryst) (Klor-Con M) silver sulfadiazine 1 % topical 1 applic topical BID 05/17/23 05/17/23 cream Previous Rx's Medication Instructions Recorded finasteride 5 mg tablet 5 mg PO DAILY #90 tabs 04/17/23 Results & Data (ED) Vital Signs Vital Signs - 24 hr 05/17/23 14:23 05/17/23 16:54 05/17/23 17:00 Temperature 36.6 C Temperature Source Temporal Artery Scan Pulse Rate 64 60 58 L Respiratory Rate 20 14 Respiratory Effort / Characteristics Non-Labored Respiratory Depth Normal Blood Pressure 137/83 124/71 Blood Pressure Mean 101 88 Pulse Oximetry 98 97 Oxygen Delivery Method Room Air Room Air Sepsis Recent Fever Within 48 Hours No Sepsis New/Unexplained Change in Mental Status No Sepsis Action Taken by Nursing No Action Required 05/17/23 17:30 05/17/23 18:00 Temperature Temperature Source Pulse Rate 61 71 Respiratory Rate 14 17 Respiratory Effort / Characteristics Respiratory Depth Blood Pressure 139/80 148/85 H Blood Pressure Mean 99 106 Pulse Oximetry 98 98 Oxygen Delivery Method Room Air Room Air Sepsis Recent Fever Within 48 Hours Sepsis New/Unexplained Change in Mental Status Sepsis Action Taken by Nursing Laboratory Data 05/17/23 15:31 05/17/23 23:27 Lab Results 05/17/23 Range/Units 15:31 WBC 9.22 (4.8-10.8) K/ul RBC 5.25 (4.70-6.10) M/uL Hgb 14.9 (14.0-18.0) g/dl Hct 43.7 (42.0-52.0) % MCV 83.2 (80.0-100.0) fL MCH 28.4 (25.0-34.0) pg MCHC 34.1 (32.0-36.0) g/dL RDW Std Deviation 40.6 (36.4-46.3) fL RDW Coeff of Estuardo 13.4 (11.5-14.5) % Plt Count 237 (130-400) K/uL MPV 9.0 L (9.4-12.4) fL Immature Gran % (Auto) 0.4 % Neut % (Auto) 81.1 % Lymph % (Auto) 11.1 % [place] % (Auto) 6.2 % Eos % (Auto) 1.0 % Baso % (Auto) 0.2 % Neut # (Auto) 7.48 H (1.40-6.50) K/uL Lymph # (Auto) 1.02 L (1.20-3.40) K/uL [place] # (Auto) 0.57 (0.11-0.59) K/uL Eos # (Auto) 0.09 (0.00-0.50) K/uL Baso # (Auto) 0.02 (0.00-0.20) K/uL Immature Gran # (Auto) 0.04 (0.01-0.20) K/uL Sodium 134 L (136-145) mmol/L Potassium 2.8 L (3.5-5.1) mmol/L Chloride 85 L (98-107) mmol/L Carbon Dioxide 37 H (21-32) mmol/L Anion Gap 12 H (3-11) BUN 64 H (6-23) mg/dl Creatinine 1.53 H (0.6-1.4) mg/dl Est Cr Clr Drug Dosing 44.8 ml/min Est GFR ( Amer) 48.4 ml/min Est GFR (Non-Af Amer) 41.7 ml/min BUN/Creatinine Ratio 41.8 H (10-20) Glucose 112 H (70-99(Fasting)) mg/dl Calcium 10.7 H (8.6-10.3) mg/dl Magnesium 2.4 (1.7-2.4) mg/dl Total Bilirubin 1.2 H (0.2-1.0) mg/dl AST 23 (13-39) U/L ALT 17 (7-52) U/L Alkaline Phosphatase 75 (34-104) U/L Troponin I High Sens 195.3 H* (0-20) pg/ml B-Natriuretic Peptide 396 H (0-100) pg/ml Total Protein 8.6 H (6.0-8.3) gm/dl Albumin 4.4 (3.4-5.0) gm/dl Globulin 4.2 H (2.5-4.0) gm/dl Albumin/Globulin Ratio 1.0 (0.9-2) Lipase 92 H (11-82) U/L Administered Medications Albuterol (Albuterol Hfa 8 Gm Inhaler) 2 puffs INH QIDR JEFF Stop: 06/16/23 23:03 Last Admin: 05/17/23 23:57 Dose: 2 puffs Documented By: TEJ Heparin Sodium (Porcine) (Heparin Sod 5,000 Unit/0.5 Ml Vial) 5,000 units SQ Q12 JEFF Stop: 06/16/23 23:03 Last Admin: 05/18/23 00:17 Dose: 5,000 units Documented By: MEME Lactated Ringer's (Lr) 1,000 mls @ 125 mls/hr IV .Q8H [facility] Stop: 05/18/23 05:03 Last Admin: 05/17/23 23:56 Dose: 125 mls/hr Documented By: MEME Potassium Chloride (Potassium Chloride Crtab 20 Meq Tabcr) 20 meq PO TID JEFF Stop: 05/19/23 09:01 Last Admin: 05/18/23 00:01 Dose: 20 meq Documented By: MEME Discontinued Medications Potassium Chloride (Potassium Chloride Crtab 20 Meq Tabcr) 40 meq PO NOW [facility] Stop: 05/17/23 17:20 Last Admin: 05/17/23 17:39 Dose: 40 meq Documented By: HAYDE Imaging Data Radiologist's Impression: Chest X-Ray 05/17/23 14:26 SINGLE VIEW CHEST CLINICAL HISTORY: Dyspnea FINDINGS: A PA chest radiograph is compared to study dated 07/28/2022. The heart is mildly enlarged noting atherosclerotic calcification of the thoracic aorta. The pulmonary vasculature is noncongested. The lungs and pleural spaces are clear. No pneumothorax is seen. The skeletal structures are osteopenic. The bony thorax is grossly intact. A surgical anchor is noted in the right humeral head. Arthritic change is seen in the shoulders. IMPRESSION: No active disease in the chest. ACT 112: Negative or not required by law. Electronically signed by: Tevin Hernandez M.D. 05/17/2023 3:17 PM Abdomen/Pelvis CT 05/17/23 16:22 CT abd pelvis wo con CLINICAL HISTORY: persistent nausea TECHNIQUE: Helical axial images of the abdomen and pelvis were obtained. Automated dose lowering techniques and/or adjustment according to patient size were utilized for this exam. This exam was performed without intravenous contrast. CT DOSE: 1684.39 mGy.cm COMPARISON: None available at the time of this dictation. FINDINGS: Lower chest: No acute abnormality. Liver: Unremarkable. No focal lesions are seen. Gallbladder and biliary tree: Patient is status post cholecystectomy. No intra- or extrahepatic biliary ductal dilation. Pancreas: Unremarkable, no focal lesions. Spleen: Unremarkable. Adrenals: Unremarkable. Kidneys and ureters: Unremarkable. Bladder: Unremarkable. Reproductive organs: Prostatic calcifications are seen which may represent prior hemorrhage or granulomatous disease. Bowel: Diverticulosis is seen without diverticulitis. The appendix is normal. Lymph nodes Retroperitoneal: Unremarkable. Pelvic: Unremarkable. Mesenteric: Unremarkable. Peritoneum: Normal. Vessels: Unremarkable. Abdominal wall: Left fat containing inguinal hernia. Bones: Degenerative changes in the visualized spine. IMPRESSION: No acute abnormalities in particular no evidence of bowel obstruction in this patient with nausea. ACT 112: Negative or not required by law. Electronically signed by: Yfn Machado M.D. 05/17/2023 4:50 PM Discharge Plan Visit Data Chief Complaint: Referred by Doctor Stated Complaint: REF BY DOC, CANT EAT OR URINATE ED Provider: Shy Duarte Discharge Problem: Nausea, Hypokalemia, Elevated troponin, Elevated brain natriuretic peptide (BNP) level Patient Disposition: Admitted As Inpatient Discharge Instructions Interventions: ED Discharge Assessment Last Done: 05/17/23 22:29
--- NOTE | 2023-05-17 16:52 | CT Scan Report ---
CT abd pelvis wo con CLINICAL HISTORY: persistent nausea TECHNIQUE: Helical axial images of the abdomen and pelvis were obtained. Automated dose lowering tech niques and/or adjustment according to patient size were utilized for this exam. This exam was perfor med without intravenous contrast. CT DOSE: 1684.39 mGy.cm COMPARISON: None available at the time of this dictation. FINDINGS: Lower chest: No acute abnormality. Liver: Unremarkable. No focal lesions are seen. Gallbladder and biliary tree: Patient is status post cholecystectomy. No intra- or extrahepatic bilia ry ductal dilation. Pancreas: Unremarkable, no focal lesions. Spleen: Unremarkable. Adrenals: Unremarkable. Kidneys and ureters: Unremarkable. Bladder: Unremarkable. Reproductive organs: Prostatic calcifications are seen which may represent prior hemorrhage or granul omatous disease. Bowel: Diverticulosis is seen without diverticulitis. The appendix is normal. Lymph nodes Retroperitoneal: Unremarkable. Pelvic: Unremarkable. Mesenteric: Unremarkable. Peritoneum: Normal. Vessels: Unremarkable. Abdominal wall: Left fat containing inguinal hernia. Bones: Degenerative changes in the visualized spine. IMPRESSION: No acute abnormalities in particular no evidence of bowel obstruction in this patient with nausea. ACT 112: Negative or not required by law. Electronically signed by: Yfn Machado M.D. 05/17/2023 4:50 PM
[2023-05-17] MEDS: POTASSIUM CHLORIDE CRTAB 20 MEQ TABCR PO STA (17:39)
[2023-05-17 17:41] LABS: Magnesium 2.4 mg/dl (1.7-2.4)
--- NOTE | 2023-05-17 18:03 | History & Physical Report ---
Date of Service May 17, 2023 Assessment & Plan (1) CASSIA (acute kidney injury): Plan: Baseline creatinine less than 1.1, acutely elevated 1.53 Suspect with doubling of diuretic and adjunct metolazone/overdiuresis No significant pulmonary edema on exam Gentle fluid rehydration, spironolactone held, diuretics held on admit 1 L LR ordered, hold for any signs of pulmonary edema or developing fluid overload. Clinically patient is volume contracted on admit asessment (2) CHF (congestive heart failure): Plan: Heart failure with preserved ejection fraction, mild nonobstructive CAD, mild AV stenosis Per cardiology note 05/09/2023: Bumex increased to 3 mg twice daily, potassium 10 mEq twice daily started, patient was also started on adjunct metolazone Heart failure with preserved ejection fraction. Restrictive cardiac disease pending evaluation with serum electrophoresis and light chain analysis, proBNP, and updated echo. Cath 2021: LAD 30%, OM1 50%, ostial RCA 20% disease. LVEF 50% Noted to have multiple episodes of decompensated heart failure with response significant diuresis and weight loss of up to 10 to 15 pounds but this has not significantly improved his dyspnea overall. No chest pain on admission. Troponin 195, suspect demand/clearance with CASSIA. Trended. Checks x-ray is clear, no evidence of pulmonary edema Patient has had dyspnea somewhat disproportionate to his heart failure exacerbations. Should have continued follow-up, pulmonology referral and evaluation for restrictive disease. At time of admission he is not hypoxic and does not appear to decompensate - LE with chronic venous stasis changes and ichthyosis although no pitting edema at time of bedside assessment and no signs of superimposed cellulitis (3) Hypokalemia: Plan: Hypokalemia -Potassium repleted while in ER with 40 M EQ's x 1. Additional 20 mEq 3 times daily x 3 doses ordered. BMP trended every 4 hours Appears globally solute depleted with low sodium, potassium, and chloride. Bicarb is elevated. VBG is pending (4) BPH (benign prostatic hyperplasia): Plan: BPH Continue Flomax. Patient reports he does not actually take finasteride, this is held (5) Hypothyroidism: Plan: Hypothyroidism Synthroid continued. Repeat TSH with reflex plan (6) HTN (hypertension): Plan: Hypertension Spironolactone held for CASSIA (7) CHRIS (obstructive sleep apnea): Plan: CPAP ordered. Bicarb is elevated? Chronic hypercapnia. VBG ordered. Plan DVT prophylaxis: Heparin Diet: DM 2, SSI CODE STATUS: Full code Disposition: Medical telemetry for elevated creatinine and electrolyte History of Present Illness Primary Care Provider: Terence Garcia MD Giacomo is a 83-year-old male with past medical history of type 2 diabetes, CHF, hypertension who was referred to the ER by [facility] cardiology, Dr. English. Gerardo is seen at the bedside. He reports that he has had chronic shortness of breath and fluid overload for which his outpatient diuretics were recently increased, Bumex was increased and metolazone was added approximately 1 week ago on top of this. He reports that his leg swelling has improved with this, although his shortness of breath has never completely quite resolved. He denies fever, chills, sweats. No syncope. He does not have inspiratory pain and is not hypoxic, denies tachycardia he has felt much more fatigued recently with a poor appetite. Was noted to have an CASSIA and was referred for further assessment. At bedside he reports other than feeling generally tired and washed out and having a poor appetite he has no particular focal symptoms. Denies cough. No abdominal pain. No diarrhea/constipation. No melena/no hematochezia Medical History: Reviewed Medications: Reviewed Surgical History: Reviewed Family history: Reviewed Allergies: Reviewed Social History: Reviewed Code Status: Full Code Allergies Allergy/AdvReac Type Severity Reaction Status Date / Time sacubitril [From Entresto] Allergy Intermediate Rash Verified 05/17/23 16:48 valsartan [From Entresto] Allergy Intermediate Rash Verified 05/17/23 16:48 morphine Allergy Mild Itchy, N/V Verified 05/17/23 16:48 Suhxyif-FGU-NzX Reductase AdvReac Intermediate Severe Verified 05/17/23 16:48 Inhibitor myalgias [Bgtrjke-Ute-Zfp Reductase Inhibitor] Home Medications Medication Instructions Recorded Confirmed Type levothyroxine 50 mcg tablet 50 mcg PO QAM 07/16/20 05/17/23 History metformin 500 mg tablet 500 mg PO BID 07/16/20 05/17/23 History tamsulosin 0.4 mg capsule 0.8 mg PO DAILY 07/16/20 05/17/23 History aspirin 81 mg tablet,delayed 81 mg PO QAM 07/20/22 05/17/23 History release multivitamin 1 tab PO QAM 07/20/22 05/17/23 History spironolactone 25 mg tablet 25 mg PO QAM 07/20/22 05/17/23 History finasteride 5 mg tablet 5 mg PO DAILY #90 tabs 04/17/23 05/17/23 Rx albuterol sulfate 90 mcg/actuation 2 puff inhalation QID 05/17/23 05/17/23 History aerosol inhaler bumetanide 1 mg tablet 2 mg PO AMHS 05/17/23 05/17/23 History metolazone 5 mg tablet 5 mg PO UD 05/17/23 05/17/23 History potassium chloride 10 mEq 10 meq PO AMHS 05/17/23 05/17/23 History tablet,extended release(part/cryst) (Klor-Con M) silver sulfadiazine 1 % topical 1 applic topical BID 05/17/23 05/17/23 History cream Past Med/Surg History Medical History (Updated 05/17/23 @ 19:08 by En Eubanks MD) Chronic shortness of breath Usually with activity - worse in the morning- ongoing x years - has had full cardiac and pulmonary work up- no acute issues with exception to chronic CHF- currently controlled Aortic stenosis "Mild" aortic stenosis >FOLLOWED BY DR. WES PENN Hypothyroidism DM type 2 (diabetes mellitus, type 2) NIDDM Glucose well controlled History of COVID-19 03/2020 ([facility]). Symptoms at time of loss of taste/smell, sob, cough, congestion, fatigue > resolved except residual dyspnea (improved) and fatigue Tinnitus HTN (hypertension) Sleep apnea CPAP CHF (congestive heart failure) On diuretic BPH (benign prostatic hyperplasia) Surgical History History of total knee replacement RT/LEFT History of cholecystectomy H/O vascular surgery LEFT VEIN ABLATION History of detached retina repair History of tonsillectomy History of tooth extraction History of repair of right rotator cuff History of foot surgery Rt History of colonoscopy History of carpal tunnel release Rt History of cardiac catheterization X 4>NO STENTS (LAST CATH NOVEMBER 2021 J[facility] F [facility]) Family History (Updated 10/03/22 @ 13:51 by David Young) Grandmother Diabetes Father Prostate cancer Other Cancer Heart disease No family history of adverse response to anesthesia Social History Smoking Status: Never smoker Second Hand Exposure: No; Do You Dip or Chew Tobacco: No; Hx Alcohol Use: No Preferred Language: Chinese Communication Ability: Effective Restaurant Host/Hostess Required: No Beliefs That Will Affect Care: None Current Living Situation: Spouse Feels Safe at Home: Yes Assistive Devices: CPAP, Denture - Upper and Glasses Physical Exam Physical Exam: General: A&Ox3. NAD. Cooperative. HEENT: Atraumatic, normocephalic. Pulm: CTAB A&P. -wheezes, -rales, -rhonchi. Symmetrical chest rise. No increased work of breathing. No respiratory distress. Cardiac: RRR, +sm. Radial pulses intact and symmetrical. Abdominal: Nontender, nondistended, soft. BS present. Extremities: Left anterior dan with chronic venous stasis changes and ichthyosis, no superimposed cellulitis. No pitting edema of the lower extremities on Results & Data Results & Data Vital Signs (Past 12 Hours) Vital Signs Temp Pulse Resp BP Pulse Ox O2 Del Method 05/17/23 17:30 61 14 139/80 98 Room Air 05/17/23 17:00 58 L 14 124/71 97 Room Air 05/17/23 16:54 60 05/17/23 14:23 36.6 C 64 20 137/83 98 Room Air PG Care Time/CCT Total # of Minutes Spent Total Time Spent with Patient: Total time spent is greater than 50% in coordination of care (as documented) at patient's floor/unit and/or counseling patient: Coding Level of Care Code 70749 INT INP/OBS CARE 3/75MIN Diagnoses CASSIA (acute kidney injury) N17.9 CHF (congestive heart failure) I50.9 Hypokalemia E87.6 BPH (benign prostatic hyperplasia) N40.0 Hypothyroidism E03.9 HTN (hypertension) I10 CHRIS (obstructive sleep apnea) G47.33
[2023-05-17 19:24] LABS: Base Excess VBG 22.9 mEq/L; HCO3 VBG 49 mmol/L; Oxygen Saturation VBG < 60.0 %; PCO2 VBG 56 mmHg (38-50); PO2 VBG 30 mmHg; pH VBG 7.55 (7.36-7.41)
[2023-05-17] MEDS ORDERED: NITROGLYCERIN SL 0.4 MG/TAB TAB SL PRN (23:04)
[2023-05-17] MEDS ORDERED: ACETAMINOPHEN 325 MG TAB PO PRN (23:04)
[2023-05-17] MEDS: LACTATED RINGER'S 1,000 ML IV SCH (23:56)
[2023-05-17] MEDS: ALBUTEROL HFA 8 GM INHALER INH SCH (23:57)
[2023-05-18] MEDS: POTASSIUM CHLORIDE CRTAB 20 MEQ TABCR PO SCH (00:01)
[2023-05-18 00:03] LABS: BUN Creatinine Ratio 42.1 (10-20); Calcium 10.4 mg/dl (8.6-10.3); Creatinine Clr Calc Pharmacy 48.3 ml/min; Est GFR (African American) 53.8 ml/min; Est GFR (Non-African American) 46.5 ml/min; Potassium 2.8 mmol/L (3.5-5.1)
[2023-05-18] MEDS: HEPARIN SOD 5,000 UNIT/0.5 ML VIAL SQ SCH (00:17)
[2023-05-18 03:05] LABS: Basophils # (auto) 0.02 K/uL (0.00-0.20); Basophils % (auto) 0.3 %; Eosinophils # (auto) 0.17 K/uL (0.00-0.50); Eosinophils % (auto) 2.6 %; Hematocrit (blood only) 39.9 % (42.0-52.0); Immature Granulocytes # (auto) 0.03 K/uL (0.01-0.20); Immature Granulocytes % (auto) 0.5 %; Lymphocytes # (auto) 0.89 K/uL (1.20-3.40); Lymphocytes % (auto) 13.4 %; Mean Corpuscular Hemoglobin 27.3 pg (25.0-34.0); Mean Corpuscular Hgb Conc 32.6 g/dL (32.0-36.0); Mean Corpuscular Volume 83.8 fL (80.0-100.0); Mean Platelet Volume 9.3 fL (9.4-12.4); Monocytes # (auto) 0.49 K/uL (0.11-0.59); Monocytes % (auto) 7.4 %; Neutrophils # (auto) 5.03 K/uL (1.40-6.50); Neutrophils % (auto) 75.8 %; Platelet Count 205 K/uL (130-400); RDW Coefficient of Variation 13.4 % (11.5-14.5); RDW Standard Deviation 41.2 fL (36.4-46.3); Red Blood Count 4.76 M/uL (4.70-6.10); White Blood Count 6.63 K/ul (4.8-10.8)
[2023-05-18 03:22] LABS: Albumin Globulin Ratio 1.2 (0.9-2); Albumin Level 3.9 gm/dl (3.4-5.0); BUN Creatinine Ratio 41.7 (10-20); Bilirubin,Total 1.1 mg/dl (0.2-1.0); Calcium 9.8 mg/dl (8.6-10.3); Creatinine Clr Calc Pharmacy 49.4 ml/min; Est GFR (African American) 54.3 ml/min; Est GFR (Non-African American) 46.9 ml/min; Globulin 3.3 gm/dl (2.5-4.0); Potassium 2.9 mmol/L (3.5-5.1); Total Protein 7.2 gm/dl (6.0-8.3)
[2023-05-18 03:37] LABS: Thyroid Stimulating Hormone 2.311 uIu/ml (0.300-4.500)
[2023-05-18] MEDS: LEVOTHYROXINE SODIUM 50 MCG TABLET PO SCH (05:30)
[2023-05-18] MEDS: TAMSULOSIN HCL 0.4 MG CAP PO SCH (09:34)
[2023-05-18] MEDS: MULTIVITAMIN TAB PO SCH (09:34)
[2023-05-18] MEDS: POTASSIUM CHLORIDE CRTAB 20 MEQ TABCR PO STA (09:35)
[2023-05-18] MEDS: ASPIRIN 81 MG ECTAB PO SCH (09:35)
--- NOTE | 2023-05-18 12:15 | Hospitalist Progress Note ---
Date of Service May 18, 2023 Assessment & Plan (1) CASSIA (acute kidney injury): Plan: Baseline creatinine less than 1.1, acutely elevated 1.53 Suspect with doubling of diuretic and adjunct metolazone/overdiuresis No significant pulmonary edema on exam Gentle fluid rehydration, spironolactone held, diuretics held on admit Serum creatinine, now back to baseline (2) CHF (congestive heart failure): Plan: Heart failure with preserved ejection fraction, mild nonobstructive CAD, mild AV stenosis Per cardiology note 05/09/2023: Bumex increased to 3 mg twice daily, potassium 10 mEq twice daily started, patient was also started on adjunct metolazone Heart failure with preserved ejection fraction. Restrictive cardiac disease pending evaluation with serum electrophoresis and light chain analysis, proBNP, and updated echo. Cath 2021: LAD 30%, OM1 50%, ostial RCA 20% disease. LVEF 50% Noted to have multiple episodes of decompensated heart failure with response significant diuresis and weight loss of up to 10 to 15 pounds but this has not significantly improved his dyspnea overall. No chest pain on admission. Troponin 195, suspect demand/clearance with CASSIA. Trended. Checks x-ray is clear, no evidence of pulmonary edema Patient has had dyspnea somewhat disproportionate to his heart failure exacerbations. Should have continued follow-up, pulmonology referral and inderjit luation for restrictive disease. At time of admission he is not hypoxic and does not appear to decompensate - LE with chronic venous stasis changes and ichthyosis although no pitting edema at time of bedside assessment and no signs of superimposed cellulitis (3) Nausea: Plan: Patient still complains of nausea, etiology is uncertain CT scan of the abdomen and pelvis did not show any acute pathology Zofran as needed (4) Hypokalemia: Plan: Hypokalemia -Potassium repleted while in ER with 40 M EQ's x 1. Additional 20 mEq 3 times daily x 3 doses ordered. BMP trended every 4 hours (5) BPH (benign prostatic hyperplasia): Plan: BPH Continue Flomax. Patient reports he does not actually take finasteride, this is held (6) Hypothyroidism: Plan: Hypothyroidism Synthroid continued. Repeat TSH with reflex plan (7) HTN (hypertension): Plan: Hypertension Spironolactone held for CASSIA (8) CHRIS (obstructive sleep apnea): Plan: CPAP ordered. Bicarb is elevated? Chronic hypercapnia. VBG ordered. Plan DVT prophylaxis: Heparin Diet: DM 2, SSI CODE STATUS: Full code Disposition: Medical telemetry for elevated creatinine and electrolyte Admission and Anticipated Discharge Date Admission Date: May 17, 2023 Subjective Patient seen and examined, still complains of nausea, but denies abdominal pain or shortness of breath. Review of Systems Review of Systems: All systems reviewed are negative, apart from the ones contained in the history. Physical Exam Physical Exam: The patient is awake, alert and oriented 3, well developed and well nourished, normocephalic and atraumatic, lying in bed and in no acute distress. HEENT--PERRL, EOMI, mucous membranes and oropharynx mildly dry Neck--supple. No JVD. No bruits. Thyroid normal, trachea midline, no adenopathy. Heart--normal S1 and S2. No murmurs, rubs or gallops. Lungs--clear bilaterally, no respiratory distress, no accessory muscle use. Abdomen--normal bowel sounds and soft. Mild epigastric and left sided abdominal pain Extremities--no cyanosis or clubbing. No edema. Dermatologic--normal skin turgor, normal color, no abnormal lymph nodes, no rash. Neurologic--cranial nerves II through XII grossly intact. Rheumatologic--normal range of motion. Psychiatric--normal affect. Results & Data Results & Data Vital Signs (Past 12 Hours) Vital Signs Temp Pulse Resp BP BP Pulse Ox O2 Del Method 05/18/23 11:49 97.5 F L 67 18 115/73 95 Room Air 05/18/23 11:12 65 18 95 Room Air 05/18/23 07:26 98.5 F 63 16 113/73 95 Room Air 05/18/23 06:21 61 18 95 Room Air 05/18/23 03:00 98.4 F 62 20 102/64 96 Room Air PG Care Time/CCT Total # of Minutes Spent Total Time Spent with Patient: Total time spent is greater than 50% in coordination of care (as documented) at patient's floor/unit and/or counseling patient: Coding Level of Care Code 84263 SUB INP/OBS CARE 2/35MIN Diagnoses CASSIA (acute kidney injury) N17.9 CHF (congestive heart failure) I50.9 Nausea R11.0 Hypokalemia E87.6 BPH (benign prostatic hyperplasia) N40.0 Hypothyroidism E03.9 HTN (hypertension) I10 CHRIS (obstructive sleep apnea) G47.33 Time Spent (min) 35
[2023-05-18] MEDS: ONDANSETRON INJ 2 MG/ML 2 ML VIAL IV SCH (18:13)
[2023-05-18] MEDS: SILVER SULFADIAZINE 1% CR 400 GM JAR EXT SCH (19:32)
[2023-05-18] MEDS: SILVER SULFADIAZINE 1% CR 50 GM JAR EXT SCH (20:16)
--- NOTE | 2023-05-19 05:59 | Electrocardiogram Report ---
Test Reason : Blood Pressure : / mmHG Vent. Rate : 066 BPM Atrial Rate : 066 BPM P-R Int : 214 ms QRS Dur : 106 ms QT Int : 470 ms P-R-T Axes : 061 265 061 degrees QTc Int : 492 ms Poor data quality, interpretation may be adversely affected Sinus rhythm with 1st degree A-V block Right superior axis deviation Incomplete right bundle branch block Nonspecific ST and T wave abnormality Prolonged QT Abnormal ECG When compared with ECG of 28-JUL-2022 10:56, Criteria for Inferior infarct are no longer Present Confirmed by Deepak Wilson ([id number]) on 05/19/2023 5:58:37 AM Referred By: Confirmed By:Deepak Wilson
[2023-05-19 06:39] LABS: Basophils # (auto) 0.02 K/uL (0.00-0.20); Basophils % (auto) 0.4 %; Eosinophils # (auto) 0.15 K/uL (0.00-0.50); Eosinophils % (auto) 2.8 %; Hematocrit (blood only) 38.5 % (42.0-52.0); Hemoglobin 12.7 g/dl (14.0-18.0); Immature Granulocytes # (auto) 0.03 K/uL (0.01-0.20); Immature Granulocytes % (auto) 0.6 %; Lymphocytes # (auto) 0.87 K/uL (1.20-3.40); Lymphocytes % (auto) 16.5 %; Mean Corpuscular Hemoglobin 27.8 pg (25.0-34.0); Mean Corpuscular Volume 84.2 fL (80.0-100.0); Mean Platelet Volume 9.1 fL (9.4-12.4); Monocytes # (auto) 0.42 K/uL (0.11-0.59); Neutrophils # (auto) 3.79 K/uL (1.40-6.50); Neutrophils % (auto) 71.7 %; Platelet Count 200 K/uL (130-400); RDW Coefficient of Variation 13.6 % (11.5-14.5); RDW Standard Deviation 41.9 fL (36.4-46.3); Red Blood Count 4.57 M/uL (4.70-6.10); White Blood Count 5.28 K/ul (4.8-10.8)
[2023-05-19 07:47] LABS: Albumin Globulin Ratio 1.2 (0.9-2); Albumin Level 3.8 gm/dl (3.4-5.0); BUN Creatinine Ratio 31.1 (10-20); Bilirubin,Total 0.9 mg/dl (0.2-1.0); Calcium 9.9 mg/dl (8.6-10.3); Creatinine Clr Calc Pharmacy 56.6 ml/min; Est GFR (African American) 63.6 ml/min; Est GFR (Non-African American) 54.9 ml/min; Globulin 3.2 gm/dl (2.5-4.0); Potassium 3.7 mmol/L (3.5-5.1)
--- NOTE | 2023-05-19 10:19 | Discharge Summary ---
Date of Service May 19, 2023 Admission HPI Per Admitting Provider Giacomo is a 83-year-old male with past medical history of type 2 diabetes, CHF, hypertension who was referred to the ER by [facility] cardiology, Dr. English. Gerardo is seen at the bedside. He reports that he has had chronic shortness of breath and fluid overload for which his outpatient diuretics were recently increased, Bumex was increased and metolazone was added approximately 1 week ago on top of this. He reports that his leg swelling has improved with this, although his shortness of breath has never completely quite resolved. He denies fever, chills, sweats. No syncope. He does not have inspiratory pain and is not hypoxic, denies tachycardia he has felt much more fatigued recently with a poor appetite. Was noted to have an CASSIA and was referred for further assessment. At bedside he reports other than feeling generally tired and washed out and having a poor appetite he has no particular focal symptoms. Denies cough. No abdominal pain. No diarrhea/constipation. No melena/no hematochezia Medical History: Reviewed Medications: Reviewed Surgical History: Reviewed Family history: Reviewed Allergies: Reviewed Social History: Reviewed Code Status: Full Code Principal Diagnosis CASSIA Discharge Exam The patient is awake, alert and oriented 3, well developed and well nourished, normocephalic and atraumatic, lying in bed and in no acute distress. HEENT--PERRL, EOMI, mucous membranes and oropharynx mildly dry Neck--supple. No JVD. No bruits. Thyroid normal, trachea midline, no adenopathy. Heart--normal S1 and S2. No murmurs, rubs or gallops. Lungs--clear bilaterally, no respiratory distress, no accessory muscle use. Abdomen--normal bowel sounds and soft. Mild epigastric and left sided abdominal pain Extremities--no cyanosis or clubbing. No edema. Dermatologic--normal skin turgor, normal color, no abnormal lymph nodes, no rash. Neurologic--cranial nerves II through XII grossly intact. Rheumatologic--normal range of motion. Psychiatric--normal affect. Discharge Data Allergies Allergy/AdvReac Type Severity Reaction Status Date / Time sacubitril [From Entresto] Allergy Intermediate Rash Verified 05/17/23 16:48 valsartan [From Entresto] Allergy Intermediate Rash Verified 05/17/23 16:48 morphine Allergy Mild Itchy, N/V Verified 05/17/23 16:48 [id number] Reductase AdvReac Intermediate Severe Verified 05/17/23 16:48 Inhibitor myalgias [[id number] Reductase Inhibitor] Consultations 05/17/23 18:09 ED Decision to Admit Stat Ordered Studies 05/17/23 16:22 CT abd pelvis wo con Stat Hospital Course (1) CASSIA (acute kidney injury): Baseline creatinine less than 1.1, acutely elevated 1.53 Suspect with doubling of diuretic and adjunct metolazone/overdiuresis No significant pulmonary edema on exam Gentle fluid rehydration, spironolactone held, diuretics held on admit Serum creatinine, now back to baseline -Upon discharge, hold Bumex until seen by nephrology or cardiology (2) CHF (congestive heart failure): Heart failure with preserved ejection fraction, mild nonobstructive CAD, mild AV stenosis Per cardiology note 05/09/2023: Bumex increased to 3 mg twice daily, potassium 10 mEq twice daily started, patient was also started on adjunct metolazone Heart failure with preserved ejection fraction. Restrictive cardiac disease pending evaluation with serum electrophoresis and light chain analysis, proBNP, and updated echo. Cath 2021: LAD 30%, OM1 50%, ostial RCA 20% disease. LVEF 50% Noted to have multiple episodes of decompensated heart failure with response significant diuresis and weight loss of up to 10 to 15 pounds but this has not significantly improved his dyspnea overall. No chest pain on admission. Troponin 195, suspect demand/clearance with CASSIA. Trended. Checks x-ray is clear, no evidence of pulmonary edema Patient has had dyspnea somewhat disproportionate to his heart failure exacerbations. Should have continued follow-up, pulmonology referral and evaluation for restrictive disease. At time of admission he is not hypoxic and does not appear to decompensate - LE with chronic venous stasis changes and ichthyosis although no pitting edema at time of bedside assessment and no signs of superimposed cellulitis (3) Nausea: Patient still complains of nausea, etiology is uncertain CT scan of the abdomen and pelvis did not show any acute pathology Zofran as needed (4) Hypokalemia: Hypokalemia -Potassium repleted while in ER with 40 M EQ's x 1. Additional 20 mEq 3 times daily x 3 doses ordered. BMP trended every 4 hours (5) BPH (benign prostatic hyperplasia): BPH Continue Flomax. Patient reports he does not actually take finasteride, this is held (6) Hypothyroidism: Hypothyroidism Synthroid continued. Repeat TSH with reflex plan (7) HTN (hypertension): Hypertension Spironolactone held for CASSIA (8) CHRIS (obstructive sleep apnea): CPAP ordered. Bicarb is elevated? Chronic hypercapnia. VBG ordered. (9) Demand ischemia: Elevated troponin likely secondary to demand ischemia Trending down Patient denies chest pain. Plan DVT prophylaxis: Heparin Diet: DM 2, SSI CODE STATUS: Full code Disposition: Discharge home Total Time Total Time Spent Total Time Spent (In Minutes): 35 Discharge Plan Discharge Items Patient Disposition: Home - Self-Care Reason For Visit: CASSIA Discharge Diagnosis: CASSIA Activity: Resume your previous activity Non-emergency contact: Primary Care Provider and Senior Games Technician Call non-emergency contact if: you have any medication questions Follow-up/Referrals: Terence Garcia MD [Primary Care Provider] - 05/24/23 11:40 am Diet: Heart Healthy Addtl Attending Provider Instructions: Please, hold the Bumex and then take it for couple of days. 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 Pending Studies at Discharge: No Stand-Alone Forms: [facility], Smoking Cessation Medications and DC Order Prescriptions: Continued finasteride 5 mg tablet 5 mg PO DAILY Qty: 90 3RF multivitamin Tablet 1 tab PO QAM aspirin 81 mg Tablet,Delayed Release (Dr/Ec) 81 mg PO QAM spironolactone 25 mg Tablet 25 mg PO QAM metformin 500 mg Tablet 500 mg PO BID tamsulosin 0.4 mg Capsule 0.8 mg PO DAILY levothyroxine 50 mcg Tablet 50 mcg PO QAM silver sulfadiazine 1 % cream 1 applic TOPICAL BID metolazone 5 mg tablet 5 mg PO UD Rx Instructions: take 1 tablet every other day 30 minutes before BUMEX albuterol sulfate 90 mcg/actuation HFA aerosol inhaler 2 puff INHALATION QID Held potassium chloride [Klor-Con M10] 10 mEq tablet,ER particles/crystals 10 meq PO [facility] Hold Instructions: Resume on 05/20/23. bumetanide 1 mg tablet 2 mg PO [facility] Hold Instructions: Resume on 05/20/23. Discharge Orders: Discharge Order (Routine); Ordered 05/19/23 Ordered By: Zuly Munoz/Other Patient Handouts: Coping with Heart Failure Admission Data Admit Date/Time: 05/17/23 18:51 Attending Provider: Zuly Urena Admit Provider: En Eubanks Primary Care Provider: Terence Garcia Other Providers: En Eubanks Other Interventions: Discharge Summary Assessment (RN) Last Done: 05/19/23 09:32 Coding Level of Care Code 50424 INP/OBS DISCH >30 MIN Diagnoses CASSIA (acute kidney injury) N17.9 CHF (congestive heart failure) I50.9 Nausea R11.0 Hypokalemia E87.6 BPH (benign prostatic hyperplasia) N40.0 Hypothyroidism E03.9 HTN (hypertension) I10 CHRIS (obstructive sleep apnea) G47.33 Demand ischemia I24.89 Time Spent (min) 35
== END 2023-05-19 11:10 | disposition home or self-care (01) | DRG 683 ==
LOC: SUATTDRO → ED 14:10 → 2S 18:51 → SUATTDRO 18:51 → 2S 22:29